=== PATIENT | female | born 1975 | race Caucasian/White ===

== ENCOUNTER 2016-04-24 12:47 | Emergency (ER) | payer MEDICAID ==
[2016-04-24] MEDS ORDERED: predniSONE 20 MG TABLET PO STA (13:01)
[2016-04-24] MEDS ORDERED: predniSONE 20 MG TABLET ONE (13:04)
== END 2016-04-24 13:08 | disposition home or self-care (01) ==
DX: J06.9 Acute upper respiratory infection, unspecified (principal); B97.89 Other viral agents as the cause of diseases classified elsewhere; R06.2 Wheezing
CPT/HCPCS: 99283; J7512

== ENCOUNTER 2016-04-26 14:58 | Emergency (ER) | payer MEDICAID | END 2016-04-26 18:59 | disposition home or self-care (01) | DX: J06.9 Acute upper respiratory infection, unspecified (principal); B97.89 Other viral agents as the cause of diseases classified elsewhere; J44.9 Chronic obstructive pulmonary disease, unspecified; J45.909 Unspecified asthma, uncomplicated ==

== ENCOUNTER 2017-07-20 09:27 | Emergency (ER) | payer MEDICAID ==
[2017-07-20 09:33] VITALS: BP 109/64
[2017-07-20 09:50] LABS: BILIRUBIN,URINE NEGATIVE (NEGATIVE); GLUCOSE, URINE (UA) NEGATIVE (NEGATIVE); KETONES,URINE (UA) NEGATIVE (NEGATIVE); LEUKOCYTE ESTERASE, URINE MODERATE (NEGATIVE); NITRITE,URINE NEGATIVE (NEGATIVE); OCCULT BLOOD,URINE LARGE (NEGATIVE); PROTEIN,URINE 30 mg/dL (NEGATIVE); UROBILINOGEN,URINE 0.2 (NORMAL) E.U./dL (NORMAL)
[2017-07-20 09:51] LABS: CLARITY,URINE CLEAR (CLEAR)
[2017-07-20 09:52] LABS: HCG UR QUAL NEGATIVE
[2017-07-20 10:00] LABS: BACTERIA,URINE Moderate /HPF (None Seen); RBC,URINE TNTC /HPF (0-5); SQUAMOUS EPITHELIAL CELL,UR MOD Squamous (<= Few)
[2017-07-20] MEDS ORDERED: cefTRIAXone 1 GM VIAL IM STA (10:19)
[2017-07-20] MEDS ORDERED: LIDOCAINE 1% 2 ML VIAL SUBQ ONE (10:19)
--- NOTE | 2017-07-20 10:21 | ED Physician Documentation ---
PD HPI FEMALE - Stated complaint Stated Complaint: FM - Chief complaint Chief Complaint: UTI - History obtained from History obtained from: Patient, Family - History of Present Illness Timing - onset: Enter time (0500), Today Timing - duration: Hours Timing - details: Abrupt onset, Still present Associated symptoms: Dysuria, Urinary frequency, Other (nausea). No: Fever, Back pain, Pelvic pain Similar symptoms before: Diagnosis (UTI) Recently seen: Not recently seen - Additional information Additional information: 41-year-old female who has had urinary tract infections previously is began to develop some symptoms of urinary urgency and frequency at about 5:00 this morning. She is a bit uncomfortable with this and has a bit of nausea. She denies any back pain. Denies any fever. Review of Systems Constitutional: denies: Fever Eyes: denies: Decreased vision Ears: denies: Ear pain Nose: denies: Congestion Throat: denies: Sore throat Cardiac: denies: Chest pain / pressure Respiratory: denies: Cough GI: reports: Nausea. denies: Abdominal Pain, Vomiting, Constipation, Diarrhea : reports: Dysuria, Frequency Skin: denies: Rash Musculoskeletal: denies: Neck pain, Back pain, Extremity pain Neurologic: denies: Generalized weakness, Focal weakness PD PAST MEDICAL HISTORY - Past Medical History Past Medical History: Yes Respiratory: Asthma Psych: Anxiety Musculoskeletal: Chronic back pain - Past Surgical History Past Surgical History: Yes - Present Medications Home Medications: Ambulatory Orders Medication Instructions Recorded Confirmed Citalopram [CeleXA] 20 mg PO DAILY 10/19/15 Albuterol Sulfate [Proair Hfa 04/24/16 Inhaler] predniSONE [Prednisone] 40 mg PO DAILY 5 Days tablet 04/24/16 Albuterol 04/26/16 Albuterol Sulf [Ventolin Hfa 04/26/16 Inhaler] Albuterol Sulfate [Proair Hfa 04/26/16 04/26/16 Inhaler] Hydrocodone/Acetaminophen 1 - 2 each PO Q6H PRN #10 tablet 04/26/16 [Hydrocodon-Acetaminophen 5-325] Azithromycin [Zithromax] 250 mg PO DAILY #6 tablet 01/01/17 Benzonatate [Tessalon] 100 - 200 mg PO TID PRN #20 capsule 01/01/17 predniSONE [Deltasone] 10 mg PO DAILY #26 tablet 01/01/17 Ondansetron Odt [Zofran] 4 mg TL Q6H PRN #10 tablet 07/20/17 Phenazopyridine [Pyridium] 200 mg PO TID #6 tablet 07/20/17 Sulfamethoxazole/Trimethoprim 1 each PO BID #10 tablet 07/20/17 [Sulfamethoxazole-Tmp Ds Tablet] - Allergies Allergies/Adverse Reactions: Allergies Allergy/AdvReac Type Severity Reaction Status Date / Time prochlorperazine AdvReac Unknown Verified 04/26/16 17:48 [From Compazine] prochlorperazine edisylate * AdvReac Unknown Verified 04/26/16 17:48 [From Compazine] prochlorperazine maleate * AdvReac Unknown Verified 04/26/16 17:48 [From Compazine] - Social History Does the pt smoke?: No Smoking Status: Never smoker Does the pt drink ETOH?: No Does the pt have substance abuse?: No - Immunizations Immunizations are current?: Yes PD ED PE NORMAL - Vitals Vital signs reviewed: Yes (normal ) - General General: Alert and oriented X 3, Well developed/nourished, Other (appears uncomfortable) - HEENT HEENT: Atraumatic, PERRL, EOMI - Neck Neck: Supple, no meningeal sign - Cardiac Cardiac: RRR, No murmur - Respiratory Respiratory: No respiratory distress, Clear bilaterally - Abdomen Abdomen: Soft, Non tender - Back Back: No spinal TTP, Other (There is left CVA tenderness to palpation. ) - Derm Derm: Normal color, Warm and dry, No rash - Extremities Extremities: No deformity, No edema - Neuro Neuro: Alert and oriented X 3, No motor deficit, No sensory deficit, Normal speech Eye Opening: Spontaneous Motor: Obeys Commands Verbal: Oriented GCS Score: 15 - Psych Psych: Normal mood, Normal affect Results - Vitals Vitals: Vital Signs - 24 hr 07/20/17 09:31 Temperature 36.1 C L Heart Rate 80 Respiratory 16 Rate Blood Pressure 109/64 O2 Saturation 100 Oxygen O2 Source Room air - Labs Labs: Laboratory Tests 07/20/17 07/20/17 09:45 09:45 Urine Color YELLOW Urine Clarity CLEAR Urine pH 7.0 Ur Specific [place] 1.020 1.020 Urine Protein 30 H Urine Glucose (UA) NEGATIVE Urine Ketones NEGATIVE Urine Occult Blood LARGE H Urine Nitrite NEGATIVE Urine Bilirubin NEGATIVE Urine Urobilinogen 0.2 (NORMAL) Ur Leukocyte Esterase MODERATE H Urine RBC TNTC H Urine WBC 6-10 H Ur Squamous Epith Cells MOD Squamous H Urine Bacteria Moderate H Ur Microscopic Review INDICATED Urine Culture Comments NOT INDICATED Urine HCG, Qual NEGATIVE PD MEDICAL DECISION MAKING - ED course Complexity details: reviewed results, re-evaluated patient, considered differential, d/w patient ED course: 41-year-old female with typical urinary tract symptoms for her and has developed urinary tract infection. She does have white blood cells in the urine on microscopic examination and on on physical examination she has left flank tenderness. She was unaware of this until I struck her back. She also has some nausea. Both of these findings are concerning for early pyelonephritis. For this reason she is administered Rocephin IM and we will start her on some . Departure - Departure Disposition: 01 Home, Self Care Clinical Impression: Pyelonephritis Instructions: ED Kidney Infec Female Follow-Up: Tony Horner MD [Primary Care Provider] - Prescriptions: Ondansetron Odt [Zofran] 4 mg TL Q6H PRN #10 tablet PRN Reason: Nausea / Vomiting Phenazopyridine [Pyridium] 200 mg PO TID #6 tablet Sulfamethoxazole/Trimethoprim [Sulfamethoxazole-Tmp Ds Tablet] 1 each PO BID # 10 tablet
[2017-07-20] MEDS ORDERED: PHENAZOPYRIDINE 100 MG TABLET PO STA (10:35)
[2017-07-20] MEDS ORDERED: ONDANSETRON ODT 4 MG TABLET TL STA (10:36)
== END 2017-07-20 10:59 | disposition home or self-care (01) ==
LOC: ED 09:27
DX: N12 Tubulo-interstitial nephritis, not specified as acute or chronic (principal); R11.0 Nausea
CPT/HCPCS: 81001; 81025; 96372; 99283; A9270; Q0162; 81003; 87086

== ENCOUNTER 2018-01-20 08:00 | Outpatient (CLI) | payer MEDICAID ==
[2018-01-20 12:35] LABS: BUN - BLOOD UREA NITROGEN 15 mg/dL (6-20); CALCIUM 8.9 mg/dL (8.5-10.3); CARBON DIOXIDE - CO2 25 mmol/L (21-32); CHLORIDE 102 mmol/L (101-111); CREATININE 0.6 mg/dL (0.4-1.0); GFR - MDRD 109 (>89); GLUCOSE 91 mg/dL (70-100); SODIUM 137 mmol/L (135-145)
[2018-01-20 12:44] LABS: BASOPHILS % (AUTO) 0.6 %; EOSINOPHILS # (AUTO) 0.4 10^3/uL (0.0-0.7); EOSINOPHILS % (AUTO) 4.8 %; HGB - HEMOGLOBIN 12.4 g/dL (12.0-16.0); LYMPHOCYTES # (AUTO) 1.4 10^3/uL (1.5-3.5); LYMPHOCYTES % (AUTO) 18.1 %; MEAN CORPUSCULAR HEMOGLOBIN 26.9 pg (27.0-31.0); MEAN CORPUSCULAR HGB CONC 33.3 g/dL (32.0-36.0); MEAN CORPUSCULAR VOLUME 80.7 fL (81.0-99.0); MEAN PLATELET VOLUME 9.3 fL (7.9-10.8); MONOCYTES # (AUTO) 0.6 10^3/uL (0.0-1.0); MONOCYTES % (AUTO) 8.2 %; NEUTROPHILS # (AUTO) 5.4 10^3/uL (1.5-6.6); NEUTROPHILS % (AUTO) 68.3 %; PLT - PLATELET COUNT 204 10^3/uL (130-450); RED BLOOD COUNT 4.63 10^6/uL (4.20-5.40); RED CELL DISTRIBUTION WIDTH 13.9 % (12.0-15.0); WHITE BLOOD COUNT 7.9 x10^3/uL (4.8-10.8)
== END 2018-01-20 08:01 | disposition home or self-care (01) ==
LOC: LAB.N 08:00
PROVIDERS: ATTEND Physician Assistant Medical
DX: Z00.00 Encounter for general adult medical examination without abnormal findings (principal)
CPT/HCPCS: 36415; 80048; 84443; 85025

== ENCOUNTER 2018-02-12 10:23 | Outpatient (CLI) | payer MEDICAID ==
--- NOTE | 2018-02-13 09:06 | Mammography Report ---
Reason: SCREENING MAMMO Procedure Date: 02/12/2018 Accession Number: [id number] / [id number] Procedure: MGN - Screening Mammo Dig Bilat CPT Code: FULL RESULT: EXAM: Screening Mammo Dig Bilat DATE: 02/12/2018 10:44 AM CLINICAL HISTORY: Screening encounter. No known risk factors. TECHNIQUE: Bilateral CC, laterally exaggerated CC, MLO views were obtained. COMPARISON: The patient reports having had a mammogram in 2004. This study serves as a new baseline mammogram. FINDINGS: The breasts demonstrate heterogeneously dense fibroglandular parenchyma bilaterally. No suspicious masses, clustered microcalcifications, or regions of architectural distortion are identified. IMPRESSION: Negative examination RECOMMENDATION: Routine annual screening unless otherwise clinically indicated. BIRADS CATEGORY 1: Negative STANDARD QUALIFYING STATEMENTS: 1. This examination was reviewed with the aid of Computer-Aided Detection (CAD). 2. A negative or benign imaging report should not preclude biopsy if clinically suspicious findings are present. 3. Dense breasts may obscure an underlying neoplasm. 4. This examination was reviewed without the aid of 3D breast imaging (tomosynthesis).
== END 2018-02-12 10:24 | disposition home or self-care (01) ==
LOC: DI.N 10:23
PROVIDERS: ATTEND Physician Assistant Medical
DX: Z12.31 Encounter for screening mammogram for malignant neoplasm of breast (principal)
CPT/HCPCS: 77067

== ENCOUNTER 2018-07-06 12:05 | Outpatient (CLI) | payer MEDICAID ==
[2018-07-06 19:47] LABS: BILIRUBIN,URINE NEGATIVE (NEGATIVE); GLUCOSE, URINE (UA) NEGATIVE (NEGATIVE); KETONES,URINE (UA) NEGATIVE (NEGATIVE); LEUKOCYTE ESTERASE, URINE NEGATIVE (NEGATIVE); NITRITE,URINE NEGATIVE (NEGATIVE); OCCULT BLOOD,URINE MODERATE (NEGATIVE); PROTEIN,URINE NEGATIVE (NEGATIVE); UROBILINOGEN,URINE 0.2 (NORMAL) E.U./dL (NORMAL)
[2018-07-06 19:49] LABS: CLARITY,URINE CLEAR (CLEAR)
[2018-07-06 19:59] LABS: BACTERIA,URINE None Seen /HPF (None Seen); SQUAMOUS EPITHELIAL CELL,UR RARE Squamous (<= Few)
== END 2018-07-06 23:59 | disposition home or self-care (01) ==
LOC: LAB.R 12:05
PROVIDERS: ATTEND Physician Assistant Medical
DX: N39.0 Urinary tract infection, site not specified (principal)
CPT/HCPCS: 81001; 81003; 87086

== ENCOUNTER 2018-07-19 09:44 | Emergency (ER) | payer MEDICAID ==
[2018-07-19 10:45] LABS: BILIRUBIN,URINE NEGATIVE (NEGATIVE); GLUCOSE, URINE (UA) NEGATIVE (NEGATIVE); KETONES,URINE (UA) NEGATIVE (NEGATIVE); LEUKOCYTE ESTERASE, URINE NEGATIVE (NEGATIVE); NITRITE,URINE NEGATIVE (NEGATIVE); OCCULT BLOOD,URINE NEGATIVE (NEGATIVE); PROTEIN,URINE NEGATIVE (NEGATIVE); UROBILINOGEN,URINE 0.2 (NORMAL) E.U./dL (NORMAL)
[2018-07-19 10:47] LABS: CLARITY,URINE CLEAR (CLEAR); HCG UR QUAL NEGATIVE
[2018-07-19 11:17] LABS: BASOPHILS % (AUTO) 0.6 %; EOSINOPHILS # (AUTO) 0.3 10^3/uL (0.0-0.7); EOSINOPHILS % (AUTO) 4.1 %; HGB - HEMOGLOBIN 11.6 g/dL (12.0-16.0); LYMPHOCYTES # (AUTO) 1.3 10^3/uL (1.5-3.5); LYMPHOCYTES % (AUTO) 19.7 %; MEAN CORPUSCULAR HEMOGLOBIN 24.8 pg (27.0-31.0); MEAN CORPUSCULAR HGB CONC 31.9 g/dL (32.0-36.0); MEAN CORPUSCULAR VOLUME 77.8 fL (81.0-99.0); MEAN PLATELET VOLUME 8.3 fL (7.9-10.8); MONOCYTES # (AUTO) 0.5 10^3/uL (0.0-1.0); MONOCYTES % (AUTO) 8.5 %; NEUTROPHILS # (AUTO) 4.3 10^3/uL (1.5-6.6); NEUTROPHILS % (AUTO) 67.1 %; PLT - PLATELET COUNT 186 10^3/uL (130-450); RED BLOOD COUNT 4.67 10^6/uL (4.20-5.40); RED CELL DISTRIBUTION WIDTH 15.3 % (12.0-15.0); WHITE BLOOD COUNT 6.4 x10^3/uL (4.8-10.8)
[2018-07-19 11:26] LABS: ALBUMIN 3.6 g/dL (3.2-5.5); ALBUMIN/GLOBULIN RATIO 1.2 (1.0-2.2); BILIRUBIN,TOTAL 0.5 mg/dL (0.2-1.0); CALCIUM 8.6 mg/dL (8.5-10.3); CREATININE 0.7 mg/dL (0.4-1.0); TOTAL PROTEIN 6.7 g/dL (6.7-8.2)
[2018-07-19] MEDS ORDERED: KETOROLAC 30 MG/ML VIAL IVP STA (11:47)
[2018-07-19] MEDS ORDERED: SODIUM CHLORIDE 0.9% 1,000 ML IV ONE (11:47)
--- NOTE | 2018-07-19 11:50 | ED Physician Documentation ---
PD HPI ABD PAIN - Stated complaint Stated Complaint: FEMALE /BACK PAIN - Chief complaint Chief Complaint: General - History obtained from History obtained from: Patient, Family - History of Present Illness Timing - onset: Last night Timing - duration: Hours Timing - details: Abrupt onset, Still present Quality: Sharp, Pain Location: LUQ Radiation: Left flank Improved by: Other (nothing) Worsened by: Other (nothing) Associated symptoms: Nausea, Vomiting, Dysuria Similar symptoms before: Diagnosis (UTI) Recently seen: Clinic - Additional information Additional information: 42-year-old female with a prior history of urinary tract infection has developed symptoms about a month ago she went into see her doctor was put on some antibiotic at that time she had some blood in the urine more than what was indicated for infection she did not seem to get improvement with antibiotic and last night she developed a severe increase in her pain along with nausea and vomiting and this is all in the left flank. Review of Systems Constitutional: denies: Fever Eyes: denies: Decreased vision Ears: denies: Ear pain Nose: denies: Rhinorrhea / runny nose, Congestion Throat: denies: Sore throat Respiratory: denies: Cough GI: reports: Abdominal Pain, Nausea, Vomiting : reports: Dysuria Skin: denies: Rash Musculoskeletal: reports: Back pain. denies: Neck pain Neurologic: denies: Generalized weakness, Focal weakness, Numbness PD PAST MEDICAL HISTORY - Past Medical History Respiratory: Asthma Psych: Anxiety Musculoskeletal: Chronic back pain - Past Surgical History Past Surgical History: Yes - Present Medications Home Medications: Ambulatory Orders Medication Instructions Recorded Confirmed Citalopram [CeleXA] 20 mg PO DAILY 10/19/15 Albuterol Sulfate [Proair Hfa 04/26/16 04/26/16 Inhaler] Hydrocodone/Acetaminophen 1 - 2 each PO Q6H PRN #14 tablet 07/19/18 [Hydrocodon-Acetaminophen 5-325] - Allergies Allergies/Adverse Reactions: Allergies Allergy/AdvReac Type Severity Reaction Status Date / Time prochlorperazine AdvReac Unknown Verified 04/26/16 17:48 [From Compazine] prochlorperazine edisylate * AdvReac Unknown Verified 04/26/16 17:48 [From Compazine] prochlorperazine maleate * AdvReac Unknown Verified 04/26/16 17:48 [From Compazine] - Social History Does the pt smoke?: No Smoking Status: Never smoker Does the pt drink ETOH?: No Does the pt have substance abuse?: No - Immunizations Immunizations are current?: Yes PD ED PE NORMAL - Vitals Vital signs reviewed: Yes (normal ) - General General: Alert and oriented X 3, No acute distress, Well developed/nourished - HEENT HEENT: Atraumatic, PERRL, EOMI - Neck Neck: Supple, no meningeal sign, No bony TTP - Cardiac Cardiac: RRR, No murmur - Respiratory Respiratory: No respiratory distress, Clear bilaterally - Abdomen Abdomen: Soft, Non tender - Back Back: No CVA TTP, No spinal TTP - Derm Derm: Normal color, Warm and dry, No rash - Extremities Extremities: No deformity, No edema - Neuro Neuro: Alert and oriented X 3, tile conduit layer 2-12 intact, No motor deficit, No sensory deficit, Normal speech Eye Opening: Spontaneous Motor: Obeys Commands Verbal: Oriented GCS Score: 15 - Psych Psych: Normal mood, Normal affect Results - Vitals Vitals: Vital Signs - 24 hr 07/19/18 07/19/18 07/19/18 10:11 11:30 14:50 Temperature 36.9 C 37 C 37.1 C Heart Rate 85 78 64 Respiratory 16 21 16 Rate Blood Pressure 98/72 116/60 127/62 O2 Saturation 99 96 99 Oxygen O2 Source Room air - Labs Labs: Laboratory Tests 07/19/18 07/19/18 07/19/18 10:34 11:07 11:07 WBC 6.4 RBC 4.67 Hgb 11.6 L Hct 36.4 L MCV 77.8 L MCH 24.8 L MCHC 31.9 L RDW 15.3 H Plt Count 186 MPV 8.3 Neut # (Auto) 4.3 Lymph # (Auto) 1.3 L Hunt # (Auto) 0.5 Eos # (Auto) 0.3 Baso # (Auto) 0.0 Absolute Nucleated RBC 0.00 Nucleated RBC % 0.1 Sodium 136 Potassium 4.0 Chloride 101 Carbon Dioxide 24 Anion Gap 11.0 BUN 14 Creatinine 0.7 Estimated GFR (MDRD) 91 Glucose 94 Calcium 8.6 Total Bilirubin 0.5 AST 21 ALT 17 Alkaline Phosphatase 51 Total Protein 6.7 Albumin 3.6 Globulin 3.1 Albumin/Globulin Ratio 1.2 Lipase 27 Urine Color LT. YELLOW Urine Clarity CLEAR Urine pH 8.0 H Ur Specific [place] <=1.005 Urine Protein NEGATIVE Urine Glucose (UA) NEGATIVE Urine Ketones NEGATIVE Urine Occult Blood NEGATIVE Urine Nitrite NEGATIVE Urine Bilirubin NEGATIVE Urine Urobilinogen 0.2 (NORMAL) Ur Leukocyte Esterase NEGATIVE Ur Microscopic Review NOT INDICATED Urine Culture Comments NOT INDICATED Urine HCG, Qual NEGATIVE - Rads (name of study) CT abd/pel without Radiology: Prelim report reviewed (Impression: 1. Nonobstructing right nephrolithiasis. 2 no evidence of urinary tract obstruction. 3 Relatively prominent and hypodense left ovary. This could represent incidental cystic change but in the setting of left-sided pain the pelvic ultrasound could be considered. 4 Large amount of stool throughout the colon.), EMP read indepedently, See rad report pelvic u/s Radiology: Prelim report reviewed (Impression: 1. Somewhat limited evaluation as the patient declined transvaginal evaluation. 2. Multicystic appearance of the left ovary with the largest cyst measuring up to 2.7 cm. 3. Doppler flow to bilateral ovaries is seen without sonographic evidence for torsion.), EMP read indepedently, See rad report Procedures - Bedside sono Bedside sono by EMP: With use of bedside ultrasound the left kidney is imaged it is sonographically nontender there is obvious hydronephrosis. There is no perinephric fluid PD MEDICAL DECISION MAKING - ED course Complexity details: reviewed old records, reviewed results, re-evaluated patient, considered differential, d/w patient, d/w family ED course: 42 y/o female with left flank pain has no infection and no stone on CT. She does have some hydro on bedside ultrasound and a polycyctic ovary on the left. She has improvement with some pain medication. Departure - Departure Disposition: Home, Self Care Clinical Impression: Ovarian cyst Qualifiers: Laterality: left Qualified Code(s): N83.202 - Unspecified ovarian cyst, left side Condition: Stable Instructions: ED Cyst Ovarian Follow-Up: Craig Pinon PA-C [Primary Care Provider] - Prescriptions: Hydrocodone/Acetaminophen [Hydrocodon-Acetaminophen 5-325] 1 - 2 each PO Q6H PRN #14 tablet PRN Reason: pain Forms: Activity restrictions
--- NOTE | 2018-07-19 12:35 | CT Report ---
Reason: left flank pain Procedure Date: 07/19/2018 Accession Number: [id number] / [id number] Procedure: CT - Abdomen/Pelvis WO CPT Code: FULL RESULT: EXAM: CT ABDOMEN AND PELVIS (CT KUB) EXAM DATE: 07/19/2018 12:04 PM. CLINICAL HISTORY: Left flank pain. COMPARISONS: None. TECHNIQUE: Routine axial helical CT imaging was performed through the abdomen and pelvis without IV contrast. Reconstructions: Coronal and sagittal. In accordance with CT protocol optimization, one or more of the following dose reduction techniques were utilized for this exam: automated exposure control, adjustment of mA and/or KV based on patient size, or use of iterative reconstructive technique. FINDINGS: Lung Bases: Unremarkable. Right Kidney/Ureter: 2 nonobstructing lower pole calculi measuring up to 3 mm. No hydronephrosis, hydroureter or ureteral calculi demonstrated. No perinephric stranding. Left Kidney/Ureter: No stones, hydronephrosis, or hydroureter. No perinephric fat stranding. No definite ureteral calculi. A left pelvic calcification is most consistent with a phlebolith. Other Solid Organs: Noncontrast images of the solid organs are grossly unremarkable. Gallbladder/Bile Ducts: Unremarkable. Peritoneal Cavity: No free fluid, free air or meena adenopathy. Bowel is grossly unremarkable. The cecum is low-lying and the appendix is not definitely visualized but there are no findings suspicious for appendicitis. Large amount of stool within the colon. Pelvic Organs: No bladder stones or wall thickening. Pattern consistent with relative prominence of the left ovary measuring up to 3.6 cm, and relative low density suggesting cystic change. This could represent a dominant follicle/follicles but in the setting of left pelvic pain further evaluation by pelvic ultrasound could be considered. Otherwise, noncontrast images of the visualized pelvic organs are unremarkable. Vasculature: Unremarkable. Other: None. IMPRESSION: 1. Nonobstructing right nephrolithiasis. 2. No evidence of urinary tract obstruction. 3. Relatively prominent and hypodense left ovary. This could represent incidental cystic change but in the setting of left sided pain, pelvic ultrasound could be considered. 4. Large amount of stool throughout the colon. RADIA
[2018-07-19] MEDS ORDERED: ONDANSETRON 4 MG/2 ML VIAL IVP STA (14:20)
[2018-07-19] MEDS ORDERED: HYDROmorphone 1 MG/ML CARPUJECT IVP STA (14:20)
--- NOTE | 2018-07-19 15:35 | Ultrasound Report ---
Reason: LEFT FLANK PAIN Procedure Date: 07/19/2018 Accession Number: [id number] / [id number] Procedure: US - Pelvic w/Doppler Complete CPT Code: FULL RESULT: EXAM: PELVIC ULTRASOUND WITH DOPPLERS CLINICAL HISTORY: LEFT FLANK PAIN. COMPARISON: ABDOMEN/PELVIS W/O 07/19/2018 11:58 AM TECHNIQUE: Realtime transabdominal imaging performed to identify the uterus and adnexa and as an overview of other pelvic structures, with static image documentation. Color flow imaging and Doppler spectral analysis was performed to evaluate blood flow to the ovaries given pelvic pain and clinical concern for ovarian torsion. FINDINGS: Uterus: 9.7 x 4.9 x 6.3 cm, volume 157 cc. Anteverted position. Normal overall size and echotexture. Masses: None. Endometrium: 15 mm. Endometrium at the upper limit of normal for thickness. No focal lesions are seen. Cervix: Unremarkable. Right Ovary: 3.2 x 1.8 x 2.8 cm, volume 8.2 cc. Normal echotexture. Arterial and venous blood flow are present. PSV 24 cm/sec. RI 0.5. Adnexa are unremarkable. Left Ovary: 3.8 x 3.5 x 4 cm, volume 27 cc. Multiple cysts are evident, the largest measuring up to 2.7 cm. Arterial and venous blood flow are present. PSV 20 cm/sec. RI 0.6. Adnexa are unremarkable. Free Fluid: None. Other: None. IMPRESSION: 1. Somewhat limited evaluation as the patient declined transvaginal evaluation. 2. Multicystic appearance to the left ovary with the largest cyst measuring up to 2.7 cm. 3. Doppler flow to bilateral ovaries is seen without sonographic evidence for torsion. RADIA
[2018-07-19 16:37] VITALS: BP 108/65
== END 2018-07-19 16:37 | disposition home or self-care (01) ==
LOC: ED 09:44
DX: N83.202 Unspecified ovarian cyst, left side (principal); N13.30 Unspecified hydronephrosis
CPT/HCPCS: 36415; 74176; 76856; 80053; 81003; 81025; 83690; 85025; 93975; 96361; 96374; 96375; 99283; 99284; J1170; 81001; 87086

== ENCOUNTER 2018-07-25 19:14 | Emergency (ER) | payer MEDICAID ==
[2018-07-25] MEDS ORDERED: PROMETHAZINE INJ 25 MG in SODIUM CHLORIDE 0.9% 50 ML IV STA (19:52)
[2018-07-25] MEDS ORDERED: OPIUM/BELLADONNA 60/16.2MG SUPPOSITORY PR STA (19:52)
[2018-07-25] MEDS ORDERED: KETOROLAC 30 MG/ML VIAL IM STA (19:52)
[2018-07-25] MEDS ORDERED: PROMETHAZINE 25 MG/1 ML VIAL IM STA (19:55)
--- NOTE | 2018-07-25 20:00 | ED Physician Documentation ---
History of Present Illness - Stated complaint Stated Complaint: FEMALE /NAUSEA/YIN - Chief complaint Chief Complaint: General - History obtained from History obtained from: Patient, Family - History of Present Illness Timing: How many days ago (several) Pain level max: 8 Pain level now: 8 - Additonal information Additional information: 42-year-old female presents to the emergency department with lower abdominal pain, dysuria and urinary frequency. Has been treated for UTI recently. She also has a headache, nausea, vomiting. Has been seen at 3 different ERs in [address] and ultrasounds other than an ovarian cyst. States vomiting today and Zofran not helping. Nothing makes it better. Worse with eating and drinking Review of Systems Ten Systems: 10 systems reviewed and negative Constitutional: denies: Fever, Chills Nose: denies: Rhinorrhea / runny nose, Congestion Throat: denies: Sore throat Cardiac: denies: Chest pain / pressure Respiratory: denies: Cough Skin: denies: Rash Musculoskeletal: denies: Neck pain, Back pain Neurologic: reports: Headache. denies: Focal weakness, Numbness, Confused PD PAST MEDICAL HISTORY - Past Medical History Respiratory: Asthma Psych: Anxiety Musculoskeletal: Chronic back pain - Past Surgical History Past Surgical History: Yes - Present Medications Home Medications: Ambulatory Orders Medication Instructions Recorded Confirmed Citalopram [CeleXA] 20 mg PO DAILY 10/19/15 Albuterol Sulfate [Proair Hfa 04/26/16 04/26/16 Inhaler] Hydrocodone/Acetaminophen 1 - 2 each PO Q6H PRN #14 tablet 07/19/18 [Hydrocodon-Acetaminophen 5-325] Opium/Belladonna Alkaloids 1 each RC Q6H PRN #20 supp.rect 07/25/18 [Belladonna-Opium 16.2-60 Supp] Promethazine Supp [Phenergan Supp] 25 mg MO Q6H PRN #10 supp 07/25/18 Promethazine [Phenergan] 25 mg PO Q6H PRN #20 tab 07/25/18 - Allergies Allergies/Adverse Reactions: Allergies Allergy/AdvReac Type Severity Reaction Status Date / Time prochlorperazine AdvReac Unknown Verified 07/25/18 19:21 [From Compazine] prochlorperazine edisylate * AdvReac Unknown Verified 07/25/18 19:21 [From Compazine] prochlorperazine maleate * AdvReac Unknown Verified 07/25/18 19:21 [From Compazine] - Social History Does the pt smoke?: No Smoking Status: Never smoker Does the pt drink ETOH?: No Does the pt have substance abuse?: No - Immunizations Immunizations are current?: Yes PD ED PE NORMAL - Vitals Vital signs reviewed: Yes - General General: Alert and oriented X 3, No acute distress - HEENT HEENT: Atraumatic, PERRL, Moist mucous membranes - Neck Neck: Supple, no meningeal sign - Cardiac Cardiac: RRR - Respiratory Respiratory: No respiratory distress, Clear bilaterally - Abdomen Abdomen: Soft, Non tender, Non distended - Back Back: No CVA TTP, No spinal TTP - Derm Derm: Warm and dry - Extremities Extremities: No edema, No calf tenderness / cord - Neuro Neuro: Alert and oriented X 3 - Psych Psych: Normal mood, Normal affect Results - Vitals Vitals: Vital Signs - 24 hr 07/25/18 07/25/18 19:16 21:04 Temperature 37.1 C Heart Rate 63 58 L Respiratory 14 15 Rate Blood Pressure 114/58 L 105/58 L O2 Saturation 100 97 Oxygen O2 Source Room air - Labs Labs: Laboratory Tests 07/25/18 20:53 Urine Color ORANGE Urine Clarity HAZY Urine pH 6.5 Ur Specific [place] <=1.005 Urine Protein TRACE Urine Glucose (UA) 100 H Urine Ketones NEGATIVE Urine Occult Blood NEGATIVE Urine Nitrite POSITIVE H Urine Bilirubin NEGATIVE Urine Urobilinogen 2 H Ur Leukocyte Esterase NEGATIVE Urine RBC 0-5 Urine WBC 0-3 Ur Squamous Epith Cells MANY Squamous H Urine Bacteria Few Ur Microscopic Review INDICATED Urine Culture Comments NOT INDICATED Urine HCG, Qual NEGATIVE PD MEDICAL DECISION MAKING - ED course Complexity details: reviewed results, re-evaluated patient, considered differential, d/w patient ED course: Patient has had several work-ups over the past 3 days for this. She feels significantly better after B&O suppositories as well as Phenergan. Tolerating p.o. without difficulty. She has had multiple blood draws, CT scans, ultrasounds over the past 3 days. Will not repeat this today. We will treat symptomatically instead. Patient and family counseled regarding signs and symptoms for which I believe and urgent re-evaluation would be necessary. Patient with good understanding of and agreement to plan and is comfortable going home at this time This document was made in part using voice recognition software. While efforts are made to proofread this document, sound alike and grammatical errors may occur. Departure - Departure Disposition: 01 Home, Self Care Clinical Impression: Bladder spasms Vomiting Qualifiers: Vomiting type: unspecified Vomiting Intractability: non-intractable Nausea presence: with nausea Qualified Code(s): R11.2 - Nausea with vomiting, unspecified Headache Qualifiers: Headache type: unspecified Headache chronicity pattern: unspecified pattern Intractability: not intractable Qualified Code(s): R51 - Headache Condition: Good Instructions: Cystitis Interstitial, ED Headache Migraine Follow-Up: Craig Pinon PA-C [Primary Care Provider] - Within 1 week Prescriptions: Opium/Belladonna Alkaloids [Belladonna-Opium 16.2-60 Supp] 1 each RC Q6H PRN #20 supp.rect PRN Reason: Bladder Spasms Promethazine [Phenergan] 25 mg PO Q6H PRN #20 tab PRN Reason: Nausea / Vomiting Promethazine Supp [Phenergan Supp] 25 mg MO Q6H PRN #10 supp PRN Reason: Nausea / Vomiting Comments: The cause of your symptoms is unclear. You may have interstitial cystitis? You should follow-up with your doctor for further care. Do not drive or operate heavy machinery while taking the B&O suppositories or Phenergan. Drink plenty of fluids and rest. Do not drink alcohol or drive while on narcotic pain medicine. Note that many narcotic pain relievers also contain tylenol/acetaminophen. Please ensure that your total dose of acetaminophen from all sources does not exceed 3 grams (3000mg) per day. You may constipated on this medication, take a stool softener such as "Colace" twice a day while you are on it. Also recommend a [id number] laxative such as senna or MiraLAX any day that you do not have a bowel movement. If you received narcotic pain medication in the emergency department, do not drive or operate machinery for the next 24 hours. Discharge Date/Time: 07/25/18 21:33
[2018-07-25 20:57] LABS: BILIRUBIN,URINE NEGATIVE (NEGATIVE); GLUCOSE, URINE (UA) 100 mg/dL (NEGATIVE); KETONES,URINE (UA) NEGATIVE (NEGATIVE); LEUKOCYTE ESTERASE, URINE NEGATIVE (NEGATIVE); NITRITE,URINE POSITIVE (NEGATIVE); OCCULT BLOOD,URINE NEGATIVE (NEGATIVE); PH,URINE 6.5 PH (5.0-7.5); PROTEIN,URINE TRACE mg/dL (NEGATIVE); UROBILINOGEN,URINE 2 E.U./dL (NORMAL)
[2018-07-25 21:07] VITALS: BP 105/58
[2018-07-25 21:10] LABS: CLARITY,URINE HAZY (CLEAR); HCG UR QUAL NEGATIVE
[2018-07-25 21:11] LABS: BACTERIA,URINE Few /HPF (None Seen); RBC,URINE 0-5 /HPF (0-5); SQUAMOUS EPITHELIAL CELL,UR MANY Squamous (<= Few)
== END 2018-07-25 21:33 | disposition home or self-care (01) ==
LOC: ED 19:14
DX: N32.89 Other specified disorders of bladder (principal); R11.2 Nausea with vomiting, unspecified; R51 Headache
CPT/HCPCS: 81001; 81025; 96372; 99283; A9270; 81003; 87086

== ENCOUNTER 2018-08-02 10:46 | Emergency (ER) | payer MEDICAID ==
[2018-08-02 10:55] VITALS: BP 130/110
--- NOTE | 2018-08-02 11:17 | ED Physician Documentation ---
History of Present Illness - Stated complaint Stated Complaint: ABD PAIN - Chief complaint Chief Complaint: Abd Pain - History obtained from History obtained from: Patient, Family - History of Present Illness Timing: Chronic Pain level max: 10 Pain level now: 8 - Additonal information Additional information: 42-year-old female presents to the emergency department with abdominal and pelvic pain. Is been worked up several times for this in the past. She has an appointment on but will be out of her pain medication before then. Requesting a short refill. No new symptoms. Nothing makes it better or worse. 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 Psych: Anxiety Musculoskeletal: Chronic back pain - Past Surgical History Past Surgical History: Yes - Present Medications Home Medications: Ambulatory Orders Medication Instructions Recorded Confirmed Citalopram [CeleXA] 20 mg PO DAILY 10/19/15 08/02/18 Albuterol Sulfate [Proair Hfa 1 puffs INH PRN PRN 04/26/16 08/02/18 Inhaler] Promethazine Supp [Phenergan Supp] 25 mg MS Q6H PRN #10 supp 07/25/18 08/02/18 Promethazine [Phenergan] 25 mg PO Q6H PRN #20 tab 07/25/18 08/02/18 Oxycodone HCl/Acetaminophen 1 tab PO PRN PRN 08/02/18 08/02/18 [Oxycodone-Acetaminophen 5-325] Oxycodone HCl/Acetaminophen 1 - 2 each PO Q6H PRN #20 tablet 08/02/18 [Percocet 5-325 mg Tablet] - Allergies Allergies/Adverse Reactions: Allergies Allergy/AdvReac Type Severity Reaction Status Date / Time prochlorperazine AdvReac Unknown Verified 08/02/18 10:54 [From Compazine] prochlorperazine edisylate * AdvReac Unknown Verified 08/02/18 10:54 [From Compazine] prochlorperazine maleate * AdvReac Unknown Verified 08/02/18 10:54 [From Compazine] - Social History Does the pt smoke?: No Smoking Status: Never smoker Does the pt drink ETOH?: No Does the pt have substance abuse?: No - Immunizations Immunizations are current?: Yes PD ED PE NORMAL - Vitals Vital signs reviewed: Yes - General General: Alert and oriented X 3, No acute distress, Well developed/nourished - HEENT HEENT: Moist mucous membranes - Neck Neck: Supple, no meningeal sign - Cardiac Cardiac: RRR, Strong equal pulses - Respiratory Respiratory: No respiratory distress, Clear bilaterally - Abdomen Abdomen: Soft, Non tender, Non distended - Derm Derm: Warm and dry - Neuro Neuro: Alert and oriented X 3 - Psych Psych: Normal mood, Normal affect Results - Vitals Vitals: Vital Signs - 24 hr 08/02/18 10:51 Temperature 36.3 C L Heart Rate 82 Respiratory 14 Rate Blood Pressure 130/110 H O2 Saturation 98 Oxygen O2 Source Room air PD MEDICAL DECISION MAKING - ED course Complexity details: reviewed old records, considered differential, d/w patient ED course: Small amount of pain meds will be given. We will follow-up with urology on as scheduled. She is well-appearing, nontoxic. Afebrile. Tolerating p.o. without difficulty. Patient counseled regarding signs and symptoms for which I believe and urgent re-evaluation would be necessary. Patient with good understanding of and agreement to plan and is comfortable going home at this time This document was made in part using voice recognition software. While efforts are made to proofread this document, sound alike and grammatical errors may occur. Departure - Departure Disposition: 01 Home, Self Care Clinical Impression: Abdominal pain Qualifiers: Abdominal location: unspecified location Qualified Code(s): R10.9 - Unspecified abdominal pain Condition: Good Instructions: ED Abdominal Pain Unkn Cause Follow-Up: Craig Pinon PA-C [Primary Care Provider] - Within 1 week Prescriptions: Oxycodone HCl/Acetaminophen [Percocet 5-325 mg Tablet] 1 - 2 each PO Q6H PRN #20 tablet PRN Reason: pain Comments: Follow-up with urology on as scheduled. Return if you worsen. Discharge Date/Time: 08/02/18 11:21
== END 2018-08-02 11:21 | disposition home or self-care (01) ==
LOC: ED 10:46
DX: R10.2 Pelvic and perineal pain (principal)
CPT/HCPCS: 99283

== ENCOUNTER 2018-08-10 08:50 | Outpatient (CLI) | payer MEDICAID ==
[2018-08-10] MEDS ORDERED: FUROSEMIDE 40 MG/4 ML VIAL IVP ONE (09:35)
--- NOTE | 2018-08-10 15:25 | Nuclear Medicine Report ---
Reason: LAFT FLANK PAIN,BLADDER PAIN Procedure Date: 08/10/2018 Accession Number: [id number] / [id number] Procedure: NM - Renal Flow + Function w/Rx CPT Code: FULL RESULT: EXAM: RENOGRAM WITH LASIX EXAM DATE: 08/10/2018 02:18 PM. CLINICAL HISTORY: LEFT FLANK Pain, bladder PAIN. COMPARISON: ABDOMEN/PELVIS W/O 07/19/2018 11:58 AM. TECHNIQUE: Adequate hydration status was ensured. Patient received the intravenous administration of 5.3 mCi Tc-99m MAG3. Immediate renal blood flow images were acquired for 2 minutes. Approximately 10 minutes into the study, the patient received an intravenous administration of 40 mg Lasix. Renal dynamic images were acquired from the posterior projection for approximately 40 minutes. Postvoid images were acquired as well. FINDINGS: Renal Vascular Flow: There is prompt, symmetric flow to both kidneys. Renal Parenchymal Function: There is normal function bilaterally. Drainage: Right renal pelvis appears dilated. There is normal drainage bilaterally with drainage half-time for both kidneys less than 10 minutes. Postvoid Images: There is some retained activity in the urinary bladder. Differential Function: Left Kidney = 51.2% Right Kidney = 48.8% IMPRESSION: Function and drainage of both kidneys is within normal limits. RADIA
== END 2018-08-10 08:51 | disposition home or self-care (01) ==
LOC: DI 08:50
PROVIDERS: ATTEND Urology
DX: R10.9 Unspecified abdominal pain (principal); R39.89 Other symptoms and signs involving the genitourinary system
CPT/HCPCS: 78708

== ENCOUNTER 2019-10-31 13:48 | Emergency (ER) | payer MEDICAID ==
--- NOTE | 2019-10-31 14:20 | ED Physician Documentation ---
PD HPI UPPER EXT INJURY - Stated complaint Stated Complaint: L SHOULDER PX - Chief complaint Chief Complaint: Ext Problem - History obtained from History obtained from: Patient - History of Present Illness Location: Left Type of injury: Other (overuse) - Additonal information Additional information: About 5 mos ago, while painting her house. developed L shoulder pain. Bothering her ever since and generally getting worse since. Worse when drying her hair. 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 - Present Medications Home Medications: Ambulatory Orders Medication Instructions Recorded Confirmed Citalopram [CeleXA] 20 mg PO DAILY 10/19/15 08/02/18 Albuterol Sulfate [Proair Hfa 1 puffs INH PRN PRN 04/26/16 08/02/18 Inhaler] Hydrocodone/Acetaminophen 1 - 2 tab PO Q6H PRN #15 tablet 10/31/19 [Hydrocodone-Acetamin 5-325 mg] Meloxicam [Mobic] 7.5 mg PO BID PRN #20 tablet 10/31/19 buPROPion [Wellbutrin Xl] 150 mg PO DAILY 10/31/19 10/31/19 - Allergies Allergies/Adverse Reactions: Allergies Allergy/AdvReac Type Severity Reaction Status Date / Time prochlorperazine AdvReac Unknown Verified 10/31/19 13:58 [From Compazine] prochlorperazine edisylate * AdvReac Unknown Verified 10/31/19 13:58 [From Compazine] prochlorperazine maleate * AdvReac Unknown Verified 10/31/19 13:58 [From Compazine] - Social History Does the pt smoke?: No Smoking Status: Never smoker Does the pt drink ETOH?: No Does the pt have substance abuse?: No - Immunizations Immunizations are current?: Yes Immunizations: TDAP current <10years - POLST Patient has POLST: No PD ED PE NORMAL - Vitals Vital signs reviewed: Yes - General General: Alert and oriented X 3, No acute distress - HEENT HEENT: PERRL, EOMI - Neck Neck: Supple, no meningeal sign, No bony TTP - Extremities Extremities: Other (V mild TTP lateral shoulder. Pos supraspinatus testing and ++ pain with int rotation.) - Neuro Neuro: Alert and oriented X 3, Normal speech Results - Vitals Vitals: Vital Signs - 24 hr 10/31/19 13:55 Temperature 36.7 C Heart Rate 63 Respiratory 18 Rate Blood Pressure 107/67 O2 Saturation 99 Oxygen O2 Source Room air - Rads (name of study) L shoulder XR Radiology: EMP read contemporaneously (NAD, no frx) Departure - Departure Disposition: 01 Home, Self Care Clinical Impression: Rotator cuff tendinitis Qualifiers: Laterality: left Qualified Code(s): M75.82 - Other shoulder lesions, left shoulder Condition: Good Record reviewed to determine appropriate education?: Yes Instructions: Exercises Frozen Shoulder, ED Tendinitis Rotator Cuff Follow-Up: [facility] [Provider Group] - Within 1 week Prescriptions: Hydrocodone/Acetaminophen [Hydrocodone-Acetamin 5-325 mg] 1 - 2 tab PO Q6H PRN #15 tablet PRN Reason: Pain Meloxicam [Mobic] 7.5 mg PO BID PRN #20 tablet PRN Reason: Pain Comments: Do the exercises as discussed to prevent decreased range of motion. Call orthopedic office tomorrow to schedule appointment. As discussed exam is consistent with rotator cuff tendinitis. Don't drink/drive while taking hydrocodone.
--- NOTE | 2019-10-31 14:34 | XRAY Report ---
PROCEDURE: Shoulder 3 View LT INDICATIONS: shoulder inj TECHNIQUE: 3 views of the shoulder were acquired. COMPARISON: None. FINDINGS: Bones: No fractures or dislocations. No suspicious bony lesions. Visualized ribs appear intact. Soft tissues: No suspicious soft tissue calcifications. IMPRESSION: No acute fracture. No osseous lesion. If symptoms and/or clinical suspicion for patholog y continue, further assessment with repeat plain films, or advanced imaging (e.g., CT, MRI, or bone s can) is recommended for further assessment. Reviewed by: Louisa Crump MD on 10/31/2019 2:33 PM PDT Approved by: Louisa Crump MD on 10/31/2019 2:33 PM PDT Station ID: [id number]
[2019-10-31 14:47] VITALS: BP 118/71
== END 2019-10-31 14:52 | disposition home or self-care (01) ==
LOC: ED 13:48
DX: M70.812 Other soft tissue disorders related to use, overuse and pressure, left shoulder (principal); Y93.E9 Activity, other interior property and clothing maintenance
CPT/HCPCS: 99283; 99284

== ENCOUNTER 2019-11-06 12:00 | Emergency (ER) | payer MEDICAID ==
[2019-11-06 12:11] VITALS: BP 122/68
[2019-11-06] MEDS ORDERED: HYDROcod/ACETAM 5/325 MG TABLET PO STA (12:39)
--- NOTE | 2019-11-06 12:41 | ED Physician Documentation ---
History of Present Illness - Stated complaint Stated Complaint: L SHOULDER PAIN - Chief complaint Chief Complaint: Ext Problem - History obtained from History obtained from: Patient - History of Present Illness Timing: Today Pain level max: 9 Pain level now: 9 - Additonal information Additional information: 44-year-old female presents the emergency department complaint of left shoulder pain. This is been ongoing for the past several months. Worsening over the past several weeks. Seen here a week ago for same. Has an appointment with orthopedics in 1 week, states she is out of her pain medication. Worse with movement, better with rest. No new injury. No numbness or tingling. 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 : Chronic bladder infection HEENT: None Psych: Depression, Anxiety Musculoskeletal: Chronic back pain Derm: None - Past Surgical History Past Surgical History: Yes /REIMBURSEMENT AUDITOR: Other - Present Medications Home Medications: Ambulatory Orders Medication Instructions Recorded Confirmed Citalopram [CeleXA] 20 mg PO DAILY 10/19/15 08/02/18 Albuterol Sulfate [Proair Hfa 1 puffs INH PRN PRN 04/26/16 08/02/18 Inhaler] Hydrocodone/Acetaminophen 1 - 2 tab PO Q6H PRN #15 tablet 10/31/19 [Hydrocodone-Acetamin 5-325 mg] Meloxicam [Mobic] 7.5 mg PO BID PRN #20 tablet 10/31/19 buPROPion [Wellbutrin Xl] 150 mg PO DAILY 10/31/19 10/31/19 HYDROcod/ACETAM 5/325 [[place] 5/325] 1 - 2 ea PO Q6H PRN #14 tablet 11/06/19 - Allergies Allergies/Adverse Reactions: Allergies Allergy/AdvReac Type Severity Reaction Status Date / Time prochlorperazine AdvReac Unknown Verified 11/06/19 12:10 [From Compazine] prochlorperazine edisylate * AdvReac Unknown Verified 08/29/20 12:10 [From Compazine] prochlorperazine maleate * AdvReac Unknown Verified 11/06/19 12:10 [From Compazine] - Social History Does the pt smoke?: No Smoking Status: Never smoker Does the pt drink ETOH?: No Does the pt have substance abuse?: No - Immunizations Immunizations are current?: Yes Immunizations: TDAP current <10years - POLST Patient has POLST: No PD ED PE NORMAL - Vitals Vital signs reviewed: Yes - General General: Alert and oriented X 3, No acute distress, Well developed/nourished - HEENT HEENT: Moist mucous membranes - Derm Derm: Warm and dry - Extremities Extremities: Other (Pain with abduction of the left glenohumeral joint, pain with external rotation greater than 90 degrees And internal rotation placing her hand and her mid back. Neurovascular intact. No tenderness over the glenohumeral joint itself.) - Neuro Neuro: Alert and oriented X 3 Results - Vitals Vitals: Vital Signs - 24 hr 11/06/19 12:09 Temperature 36.9 C Heart Rate 80 Respiratory 16 Rate Blood Pressure 122/68 O2 Saturation 98 Oxygen O2 Source Room air PD MEDICAL DECISION MAKING - ED course Complexity details: reviewed old records, reviewed results, considered differential, d/w patient ED course: Patient with what appears to be left rotator cuff tendinitis. Given a Lemons brace. Instructed on exercises and stretching. She will follow-up with orthopedics on Friday. Patient counseled regarding signs and symptoms for which I believe and urgent re-evaluation would be necessary. Patient with good understanding of and agreement to plan and is comfortable going home at this time This document was made in part using voice recognition software. While efforts are made to proofread this document, sound alike and grammatical errors may occur. Departure - Departure Disposition: 01 Home, Self Care Clinical Impression: Rotator cuff tendinitis Qualifiers: Laterality: unspecified laterality Qualified Code(s): M75.80 - Other shoulder lesions, unspecified shoulder Condition: Good Instructions: ED Tendinitis Rotator Cuff Follow-Up: [facility] [Provider Group] - Within 1 week Prescriptions: HYDROcod/ACETAM 5/325 [[place] 5/325] 1 - 2 ea PO Q6H PRN #14 tablet PRN Reason: Pain Comments: Return if you worsen. Follow up with orthopedics for further care. Wear the Lemons brace as needed. Continue the stretches and exercises as instructed. Sleeping in a more upright position will also help your discomfort. Do not drink alcohol or drive while on narcotic pain medicine. Note that many narcotic pain relievers also contain tylenol/acetaminophen. Please ensure that your total dose of acetaminophen from all sources does not exceed 3 grams (3000mg) per day. You may constipated on this medication, take a stool softener such as "Colace" twice a day while you are on it. Also recommend a vhbo-bre-ueazhpj laxative such as senna or MiraLAX any day that you do not have a bowel movement. If you received narcotic pain medication in the emergency department, do not drive or operate machinery for the next 24 hours.
== END 2019-11-06 13:08 | disposition home or self-care (01) ==
LOC: ED 12:00
DX: M75.82 Other shoulder lesions, left shoulder (principal)
CPT/HCPCS: 99282; 99284; A9270

== ENCOUNTER 2020-03-04 07:14 | Outpatient (CLI) | payer MEDICAID ==
--- NOTE | 2020-03-06 09:49 | MRI Report ---
PROCEDURE: Shoulder LT W/O INDICATIONS: INCOMPLETE ROTATOR CUFF TEAR, LT SHLDR TECHNIQUE: Noncontrast oblique coronal T2 fast spin echo with fat saturation, oblique sagittal T1 spin echo and T2 fast spin echo with fat saturation, axial T1 spin echo and T2 fast spin echo with fat saturation t hrough the shoulder. COMPARISON: None. FINDINGS: Image quality: Excellent. Rotator cuff: Supraspinatus tendinopathy with low-grade articular and bursal surface fraying. No full-thickness def ect is seen. The infraspinatus and teres minor tendons appear intact. Mild subscapularis tendinopathy and thickening. No atrophy of the rotator cuff muscles. Bones and bursae: No bone marrow contusions or fractures. Mild acromioclavicular joint degeneration. The acromion demonstrates conventional anatomy, without an os acromiale. Mild subacromial/subdeltoid bursal fluid is present. Capsule and soft tissues: Labrum: Mild blunting and degeneration of the posterior labrum without discrete intrasubstance fluid signal intensity. This superior labrum is not well visualized due to signal dropout on the coronal T2 fat suppressed pulse sequence. The long head of the biceps tendon demonstrates normal location and morphology. The rotator interval appears normal, without fibrosis. The coracohumeral ligament is normal in thickness. IMPRESSION: Supraspinatus tendinopathy with low-grade articular and bursal surface fraying. No high-grade or full -thickness rotator cuff tear. Mild subacromial-subdeltoid bursitis Reviewed by: Francisco Madrigal MD on 03/06/2020 9:48 AM PST Approved by: Francisco Madrigal MD on 03/06/2020 9:48 AM PST Station ID: [id number]
== END 2020-03-04 07:15 | disposition home or self-care (01) ==
LOC: DI 07:14
PROVIDERS: ATTEND Physician Assistant
DX: M75.112 Incomplete rotator cuff tear or rupture of left shoulder, not specified as traumatic (principal); M75.52 Bursitis of left shoulder; M75.82 Other shoulder lesions, left shoulder

== ENCOUNTER 2020-03-09 16:35 | Outpatient (CLI) | payer MEDICAID ==
--- NOTE | 2020-03-09 17:36 | XRAY Report ---
PROCEDURE: Cervical Spine 2 View INDICATIONS: NECK PAIN TECHNIQUE: 3 view(s) of the cervical spine were acquired. COMPARISON: None. FINDINGS: Bones: No fractures or dislocations to the C7 level. Mild degenerative change in the lower cervical spine. The visual is portions of the lateral masses of C1 appear intact on the odontoid view. Odonto id view is suboptimal. No suspicious bony lesions. Soft tissues: No prevertebral soft tissue swelling. IMPRESSION: Mild degenerative change in the lower cervical spine. Suboptimal odontoid view. If clinically indicated MRI or CT could be performed for further evaluation. Reviewed by: Wilber Christianson MD on 03/09/2020 5:35 PM PST Approved by: Wilber Christianson MD on 03/09/2020 5:35 PM PST Station ID: [id number]
== END 2020-03-09 23:59 | disposition home or self-care (01) ==
LOC: DI.N 16:35
PROVIDERS: ATTEND Physician Assistant
DX: M47.812 Spondylosis without myelopathy or radiculopathy, cervical region (principal)

== ENCOUNTER 2020-12-21 09:30 | Outpatient (CLI) | payer MEDICAID ==
[2020-12-21 11:56] LABS: BASOPHILS % (AUTO) 0.6 %; EOSINOPHILS # (AUTO) 0.3 10^3/uL (0.0-0.7); EOSINOPHILS % (AUTO) 4.7 %; HCT - HEMATOCRIT 34.8 % (37.0-47.0); HGB - HEMOGLOBIN 9.7 g/dL (12.0-16.0); LYMPHOCYTES # (AUTO) 1.6 10^3/uL (1.5-3.5); MEAN CORPUSCULAR HEMOGLOBIN 21.1 pg (27.0-31.0); MEAN CORPUSCULAR HGB CONC 27.9 g/dL (32.0-36.0); MEAN CORPUSCULAR VOLUME 75.8 fL (81.0-99.0); MEAN PLATELET VOLUME 11.6 fL (7.9-10.8); MONOCYTES # (AUTO) 0.7 10^3/uL (0.0-1.0); MONOCYTES % (AUTO) 9.6 %; NEUTROPHILS # (AUTO) 4.4 10^3/uL (1.5-6.6); NEUTROPHILS % (AUTO) 61.7 %; PLT - PLATELET COUNT 257 10^3/uL (130-450); RED BLOOD COUNT 4.59 10^6/uL (4.20-5.40); RED CELL DISTRIBUTION WIDTH 15.6 % (12.0-15.0); WHITE BLOOD COUNT 7.1 x10^3/uL (4.8-10.8)
[2020-12-21 11:59] LABS: SLIDE REVIEW? Indicated
[2020-12-21 12:17] LABS: PLATELET ESTIMATE, MANUAL NORMAL (130-450,000) (NORMAL); PLATELET MORPHOLOGY NORMAL APPEARANCE (NORMAL); RBC MORPHOLOGY (MULTIPLE) 1+ HYPOCHROMASIA (NORMAL)
[2020-12-21 12:18] LABS: % IRON SATURATION 4 % (20-50); ALBUMIN 4.3 g/dL (3.2-5.5); ALBUMIN/GLOBULIN RATIO 1.4 (1.0-2.2); ALKALINE PHOSPHATASE 43 IU/L (42-121); ALT ALANINE AMINOTRANSFERASE 16 IU/L (10-60); AST ASPARTATE AMINOTRANSFERASE 20 IU/L (10-42); BILIRUBIN,TOTAL 0.5 mg/dL (0.2-1.0); BUN - BLOOD UREA NITROGEN 18 mg/dL (6-20); CALCIUM 9.2 mg/dL (8.5-10.3); CARBON DIOXIDE - CO2 26 mmol/L (21-32); CHLORIDE 106 mmol/L (101-111); CHOL/HDL RATIO 2.9 (<4.4); CHOLESTEROL 169 mg/dL; CREATININE 0.8 mg/dL (0.4-1.0); GFR - MDRD 77 (>89); GLUCOSE 97 mg/dL (70-100); HDL CHOLESTEROL 58 mg/dL; IRON 21 ug/dL (28-170); LDL CHOLESTEROL,CALCULATED 100 mg/dL; LDL/HDL RATIO 1.7 (<4.4); POTASSIUM 4.2 mmol/L (3.5-5.0); SODIUM 140 mmol/L (135-145); TOTAL IRON BINDING CAPACITY 491 ug/dL (250-450); TOTAL PROTEIN 7.3 g/dL (6.7-8.2); TRANSFERRIN 351 mg/dL (192-382); TRIGLYCERIDES 56 mg/dL; VLDL CHOLESTEROL 11 mg/dL
[2020-12-21 12:47] LABS: THYROID STIMULATING HORMONE 0.51 uIU/mL (0.34-5.60)
[2020-12-21 12:51] LABS: FREE T4 (FREE THYROXINE) 0.76 ng/dL (0.58-1.64)
[2020-12-21 13:14] LABS: FOLLICLE STIMULATING HORMONE 3.99 mIU/mL
[2020-12-21 13:15] LABS: LUTEINIZING HORMONE 1.8 mIU/mL
== END 2020-12-21 23:59 | disposition home or self-care (01) ==
LOC: LAB.WCP 09:30
PROVIDERS: ATTEND Nurse Practitioner
DX: Z78.0 Asymptomatic menopausal state (principal); Z13.220 Encounter for screening for lipoid disorders; G25.81 Restless legs syndrome
CPT/HCPCS: 36415; 80053; 80061; 83001; 83002; 83540; 83721; 84439; 84443; 84466; 85025

== ENCOUNTER 2021-01-13 14:49 | Outpatient (CLI) | payer MEDICAID ==
--- NOTE | 2021-01-13 18:17 | Ultrasound Report ---
PROCEDURE: Pelvic w/Transvaginal INDICATIONS: MENORRHAGIA, PERIMENOPAUSAL TECHNIQUE: Real-time scanning was performed of the pelvic organs, with image documentation. Additional endovagi nal scanning was necessary due to incomplete visualization of the adnexal and endometrial structures by transabdominal scanning. COMPARISON: July 19, 2018 FINDINGS: No pathologic free abdominal or pelvic fluid. Uterus: Uterus is normal in size at 9.2 x 4.7 x 6.7 cm. The uterine echotexture is heterogeneous. Th e endometrium measures 4 mm in combined thickness. An apparent feeding vessel can be seen along the posterior lower uterine segment, without an associated polyp. Ovaries: The right ovary measures 3.5 x 1.9 x 1.9 cm, with a calculated volume of 6.6 cc and the lef t ovary measures 2.9 x 1.5 x 2.3 cm, with a calculated volume of 5.2 cc. No significant ovarian abno rmalities are seen. There are less than 12 follicles seen on each side. No adnexal masses are seen . IMPRESSION: There is a feeder vessel seen along the lower uterine segment posteriorly, without an associated poly p. The endometrial stripe is not thickened. Heterogeneous uterus, without masses seen. Normal-appearing ovaries. Reviewed by: Yo Gray MD on 01/13/2021 5:16 PM TERRY Approved by: Yo Gray MD on 01/13/2021 5:16 PM TERRY Station ID: [id number]
== END 2021-01-13 14:50 | disposition home or self-care (01) ==
LOC: DI 14:49
PROVIDERS: ATTEND Obstetrics & Gynecology
DX: N92.0 Excessive and frequent menstruation with regular cycle (principal); Z78.0 Asymptomatic menopausal state; R93.89 Abnormal findings on diagnostic imaging of other specified body structures

== ENCOUNTER 2021-01-17 09:03 | Outpatient (CLI) | payer MEDICAID ==
--- NOTE | 2021-01-18 09:05 | Mammography Report ---
BILATERAL DIGITAL SCREENING MAMMOGRAM 3D/2D: 01/17/2021 CLINICAL: Routine screening. Comparison is made to exam dated: 02/12/2018 mammogram - [facility]. The tissue of both breasts is heterogeneously dense. This may lower the sensitivity of mammography. No significant masses, calcifications, or other findings are seen in either breast. There has been no significant interval change. IMPRESSION: NEGATIVE There is no mammographic evidence of malignancy. A 1 year screening mammogram is recommended. This exam was interpreted at Station ID: [id number]. NOTE: For mammograms, a report in lay terms will be sent to the patient. Approximately 15% of breast malignancies will not be visualized mammographically. In the management of a palpable breast mass, a negative mammogram must not discourage biopsy of a clinically suspicious lesion. Electronically Signed By: Wilber Christianson M.D. slc/penrad:01/17/2021 10:23:06 ACR BI-RADS Category 1: Negative 3341F PARENCHYMAL PATTERN: (D) - The breast(s) demonstrate(s) heterogeneously dense fibroglandular janice cortez. BI-RADS CATEGORY: (1) - 1 RECOMMENDATION: (ANNUAL) - Recommend routine annual screening mammography. [id number] 1 year screening LATERALITY: (B)
== END 2021-01-17 09:04 | disposition home or self-care (01) ==
LOC: DI.N 09:03
PROVIDERS: ATTEND Nurse Practitioner
DX: Z12.31 Encounter for screening mammogram for malignant neoplasm of breast (principal)

== ENCOUNTER 2021-02-07 08:01 | Outpatient (CLI) | payer MEDICAID ==
[2021-02-07 12:28] LABS: BASOPHILS # (AUTO) 0.1 10^3/uL (0.0-0.1); BASOPHILS % (AUTO) 0.7 %; EOSINOPHILS # (AUTO) 0.3 10^3/uL (0.0-0.7); EOSINOPHILS % (AUTO) 4.3 %; HCT - HEMATOCRIT 40.8 % (37.0-47.0); LYMPHOCYTES # (AUTO) 1.8 10^3/uL (1.5-3.5); MEAN CORPUSCULAR HEMOGLOBIN 23.8 pg (27.0-31.0); MEAN CORPUSCULAR HGB CONC 29.4 g/dL (32.0-36.0); MEAN PLATELET VOLUME 11.7 fL (7.9-10.8); MONOCYTES # (AUTO) 0.7 10^3/uL (0.0-1.0); MONOCYTES % (AUTO) 9.6 %; NEUTROPHILS # (AUTO) 4.3 10^3/uL (1.5-6.6); NEUTROPHILS % (AUTO) 60.1 %; PLT - PLATELET COUNT 222 10^3/uL (130-450); RED BLOOD COUNT 5.04 10^6/uL (4.20-5.40); RED CELL DISTRIBUTION WIDTH 20.8 % (12.0-15.0); WHITE BLOOD COUNT 7.2 x10^3/uL (4.8-10.8)
[2021-02-07 12:40] LABS: SLIDE REVIEW? Indicated
[2021-02-07 13:48] LABS: PLATELET ESTIMATE, MANUAL NORMAL (130-450,000) (NORMAL); PLATELET MORPHOLOGY NORMAL APPEARANCE (NORMAL); RBC MORPHOLOGY (MULTIPLE) NORMAL APPEARANCE (NORMAL)
== END 2021-02-07 08:02 | disposition home or self-care (01) ==
LOC: LAB.N 08:01
PROVIDERS: ATTEND Obstetrics & Gynecology
DX: Z01.812 Encounter for preprocedural laboratory examination (principal); N92.0 Excessive and frequent menstruation with regular cycle; R93.89 Abnormal findings on diagnostic imaging of other specified body structures; Z20.822 Contact with and (suspected) exposure to COVID-19
CPT/HCPCS: 36415; 85025

== ENCOUNTER 2021-02-08 06:23 | Day surgery (SDC) | payer MEDICAID ==
[~2021-02-08 06:23] MED LIST: ACETAMINOPHEN 1,000 MG/100 ML 100 ML IV ONE; CELECOXIB 100 MG CAPSULE PO ONE; GABAPENTIN 400 MG CAPSULE ONE
[2021-02-08 06:46] LABS: HCG UR QUAL NEGATIVE
[2021-02-08] MEDS ORDERED: LACTATED RINGERS 1,000 ML IV ONE ×3 (06:57→09:16)
[2021-02-08] MEDS ORDERED: PROPOFOL 200 MG/20 ML VIAL IVP ONE (07:03)
[2021-02-08] MEDS ORDERED: ONDANSETRON 4 MG/2 ML VIAL ONE (07:03)
[2021-02-08] MEDS ORDERED: fentaNYL 100 MCG/2 ML VIAL ONE (07:03)
[2021-02-08] MEDS ORDERED: LIDOCAINE-MPF 2% 5 ML VIAL ONE (07:03)
[2021-02-08] MEDS ORDERED: DEXAMETHASONE 4 MG/ML VIAL ONE (07:03)
[2021-02-08] MEDS ORDERED: MIDAZOLAM 2 MG/2 ML VIAL ONE (07:03)
--- NOTE | 2021-02-08 07:14 | ANESTHESIA ---
Pre-Anesthesia VS, & Labs - Diagnosis menorrhagia, abnormal ultrasound finding - Procedure myosure hysteroscopy, polypectomy Vital Signs: Temp Pulse Resp BP Pulse Ox 36.8 C 85 16 107/75 97 02/08/21 06:58 02/08/21 06:58 02/08/21 06:58 02/08/21 06:58 02/08/21 06:58 Height: 5 ft 10 in Weight (kg): 71.3 kg Body Mass Index: 22.5 BMI Classification: Healthy weight - NPO >8 hours - Is Patient ?: No - Lab Results Current Lab Results: Laboratory Tests 02/08/21 06:45: POC Whole Bld Glucose 111 H Lab results reviewed: Yes Home Medications and Allergies Citalopram [CeleXA] 40 mg PO DAILY 10/19/15 Albuterol Sulfate [Proair Hfa Inhaler] 1 puffs INH PRN PRN 04/26/16 Allergies/Adverse Reactions: Allergies Allergy/AdvReac Type Severity Reaction Status Date / Time prochlorperazine AdvReac Unknown Verified 11/06/19 12:10 [From Compazine] prochlorperazine edisylate * AdvReac dystonic Verified 02/02/21 12:15 [From Compazine] reaction prochlorperazine maleate * AdvReac Unknown Verified 11/06/19 12:10 [From Compazine] Anes History & Medical History - Anesthetic History Anesthesia Complications: reports: No previous complications Family history of Anesthesia Complications: Denies Family history of Malignant Hyperthermia: Denies - Medical History Cardiovascular: reports: None Pulmonary: reports: Asthma Gastrointestinal: reports: Other Urinary: reports: None Neuro: reports: None Musculoskeletal: reports: None Endocrine/Autoimmune: reports: None Blood Disorders: reports: None Skin: reports: None Smoking Status: Never smoker - Surgical History General: reports: Other Gynecologic: reports: Other Exam General: Alert, Oriented x3, Cooperative, No acute distress Dental: WNL Mouth Openin Fingerbreadth Neck Mobility: Normal Respiratory: Lungs clear, Normal breath sounds, No respiratory distress, No accessory muscle use Cardiovascular: Regular rate, Normal S1, Normal S2, No murmurs Plan Anesthesia Type: General Consent for Procedure(s) Verified and Reviewed: Yes Code Status: Attempt Resuscitation ASA classification: 2-Mild systemic disease Is this case an emergency?: No
[2021-02-08] MEDS ORDERED: ePHEDrine 50 MG/ML VIAL IVP PRN (07:15)
[2021-02-08] MEDS ORDERED: ATROPINE ABBOJECT 1 MG/10 ML SYRINGE IVP PRN (07:15)
[2021-02-08] MEDS ORDERED: MORPHINE 2 MG/ML CARPUJECT IVP PRN (07:15)
[2021-02-08] MEDS ORDERED: METOCLOPRAMIDE 10 MG/2 ML VIAL IVP PRN (07:15)
[2021-02-08] MEDS ORDERED: fentaNYL 100 MCG/2 ML VIAL IVP PRN (07:15)
[2021-02-08] MEDS ORDERED: ONDANSETRON 4 MG/2 ML VIAL IVP PRN (07:15)
[2021-02-08] MEDS ORDERED: NALOXONE 0.4 MG/ML VIAL IVP PRN (07:15)
[2021-02-08] MEDS ORDERED: SCOPOLAMINE PATCH TOP ONE (07:18)
[2021-02-08] MEDS ORDERED: LIDOCAINE MPF 2%-EPI 1:200000 20 ML VIAL ONE (07:26)
[2021-02-08] MEDS ORDERED: SILVER NITRATE APPLICATOR TOP ONE (07:26)
[2021-02-08] MEDS ORDERED: BUPIVACAINE 0.25% PF 30 ML VIAL ONE (07:26)
[2021-02-08] MEDS ORDERED: LACTATED RINGERS 1,000 ML IV SCH (08:00)
[2021-02-08] MEDS ORDERED: SCOPOLAMINE PATCH TOP SCH (08:00)
[2021-02-08] MEDS ORDERED: BUPIVACAINE 0.25% PF 10 ML VIAL SUBQ ONE (08:22)
[2021-02-08] MEDS ORDERED: LIDOCAINE 2%-EPI 1:100000 20 ML MDV SUBQ ONE (08:23)
--- NOTE | 2021-02-08 08:53 | OPERATIVE REPORT ---
Operative Report - General Procedure Date: 02/08/21 Planned Procedure: Hysteroscopy D&C with polypectomy Pre-Op Diagnosis: Abnormal uterine bleeding, uterine polyp Procedure Performed: Hysteroscopy D&C with polypectomy Post Op Diagnosis: Abnormal uterine bleeding, uterine polyp - Procedure Note Primary Surgeon: Sandeep Collins MD Anesthesia Provider: Sonu Martines CRNA Anesthesia Technique: General ET tube Pathology: Endometrial curettings IV Fluids (mL): 800 Estimated Blood Loss (mL): 5 Urine Output (mL): 50 Findings: Likely polyp appearing growth at entrance of uterus. Proliferative appearing endometrium. Complications: None - Other Other Information/Narrative: Patient was taken to the procedure room and placed in dorsal lithotomy position. Patient was prepped and draped in usual sterile fashion. [place] speculum was palced in the vagina and the cervix was visualized. The anterior lip of the cervix was grasped with a single-tooth tenaculum. The cervix was noted to be nonstenotic and allowed the easy passage of dilators. Hysteroscope was then used to hydrodilate using normal saline distention media. Hysteroscope was advanced without difficulty using hydrodistention. Upon entry into the internal cervical os there was noted to be proliferative endometrium within the uterus. There appeared to be a polypoid lesion at the entrance of the uterus. Due to the difficulty in distending the uterus, we were not able to see the ostia. We did shave some of the endometrium off, but due to concern of thinning the uterine wall, we did not dissect further. Hemostasis was noted. Hysteroscope was then removed. Tenaculum was then removed from the cervix noted to be hemostatic. All instruments removed from the vagina. Curettings were sent to pathology. Fluid deficit was 770 mL
[2021-02-08] MEDS: HYDROmorphone 0.5 MG/0.5 ML SYRINGE IVP PRN ×2 (09:02→09:21)
--- NOTE | 2021-02-08 09:06 | ANESTHESIA POST OP EVALUATION ---
Anesthesia Post Eval - Post Anesthesia Eval Vitals: Last Vital Signs Temp 36.6 C 02/08/21 08:51 Pulse 84 02/08/21 09:00 Resp 10 L 02/08/21 09:00 BP 116/76 02/08/21 09:00 Pulse Ox 100 02/08/21 09:00 CV Function Including HR & BP: Stable Pain Control: Satisfactory Nausea & Vomiting: Negative Mental Status: Baseline Respiratory Status: Airway Patent Hydration Status: Satisfactory Anesthesia Complications: None
[2021-02-08] MEDS ORDERED: HYDROmorphone 0.5 MG/0.5 ML SYRINGE ONE ×2 (09:07→09:26)
[2021-02-08 10:49] VITALS: BP 109/72
== END 2021-02-08 06:24 | disposition home or self-care (01) ==
LOC: SDS 06:23
PROVIDERS: ATTEND Obstetrics & Gynecology
PROC: 0UDB8ZZ Extraction of Endometrium, Via Natural or Artificial Opening Endoscopic (ICD-10-PCS; 2021-02-08)
PROC: 0UB98ZZ Excision of Uterus, Via Natural or Artificial Opening Endoscopic (ICD-10-PCS; principal; 2021-02-08 07:30)
DX: N93.9 Abnormal uterine and vaginal bleeding, unspecified (principal); N84.0 Polyp of corpus uteri; N92.0 Excessive and frequent menstruation with regular cycle
CPT/HCPCS: 58558; 81025; A9270; J0131; J1170; J3490; J7120; 85027

== ENCOUNTER 2021-03-15 16:41 | Emergency (ER) | payer MEDICAID ==
[2021-03-15 17:06] LABS: BASOPHILS # (AUTO) 0.1 10^3/uL (0.0-0.1); BASOPHILS % (AUTO) 0.8 %; EOSINOPHILS # (AUTO) 0.3 10^3/uL (0.0-0.7); EOSINOPHILS % (AUTO) 3.7 %; HCT - HEMATOCRIT 39.1 % (37.0-47.0); HGB - HEMOGLOBIN 12.1 g/dL (12.0-16.0); LYMPHOCYTES # (AUTO) 2.2 10^3/uL (1.5-3.5); LYMPHOCYTES % (AUTO) 26.6 %; MEAN CORPUSCULAR HEMOGLOBIN 24.7 pg (27.0-31.0); MEAN CORPUSCULAR HGB CONC 30.9 g/dL (32.0-36.0); MEAN PLATELET VOLUME 10.2 fL (7.9-10.8); MONOCYTES # (AUTO) 0.6 10^3/uL (0.0-1.0); MONOCYTES % (AUTO) 7.3 %; NEUTROPHILS # (AUTO) 5.1 10^3/uL (1.5-6.6); NEUTROPHILS % (AUTO) 61.2 %; PLT - PLATELET COUNT 234 10^3/uL (130-450); RED BLOOD COUNT 4.89 10^6/uL (4.20-5.40); WHITE BLOOD COUNT 8.3 x10^3/uL (4.8-10.8)
[2021-03-15 17:20] LABS: ALBUMIN 4.3 g/dL (3.2-5.5); ALBUMIN/GLOBULIN RATIO 1.3 (1.0-2.2); BILIRUBIN,TOTAL 0.6 mg/dL (0.2-1.0); CALCIUM 9.6 mg/dL (8.5-10.3); CREATININE 0.9 mg/dL (0.4-1.0); POTASSIUM 3.7 mmol/L (3.5-5.0); TOTAL PROTEIN 7.5 g/dL (6.7-8.2)
--- NOTE | 2021-03-15 17:31 | ED Physician Documentation ---
History of Present Illness - Stated complaint Stated Complaint: FLANK PX IN MID BACK - Chief complaint Chief Complaint: Abd Pain - History obtained from History obtained from: Patient - History of Present Illness Timing: How many days ago (3-4) Pain level max: 8 Pain level now: 2 - Additonal information Additional information: Patient is a 45-year-old female who presents to the emergency department with right upper quadrant/right flank pain. Intermittent for the past 2 to 3 days. She states that she was seen at the walk-in clinic yesterday and told that there was a small amount of blood in her urine and that she may have a kidney stone. Patient does not have any history of kidney stones. Not have any new dysuria, urinary frequency or gross hematuria. Does have some nausea but no vomiting. Nothing seems to make it better or worse. Has never had similar symptoms previously. Denies any possibility of . She is not breast-feeding. Review of Systems Ten Systems: 10 systems reviewed and negative Constitutional: denies: Fever, Chills Throat: denies: Sore throat GI: denies: Vomiting, Diarrhea : denies: Dysuria, Frequency, Hesitancy, Now EGA Skin: denies: Rash Musculoskeletal: denies: Neck pain, Back pain Neurologic: denies: Headache PD PAST MEDICAL HISTORY - Past Medical History Cardiovascular: None Respiratory: Asthma Neuro: None Endocrine/Autoimmune: None GI: Other TAIL RIPPER: Endometriosis : None HEENT: Chronic vision loss Psych: Depression, Anxiety, Panic attacks Musculoskeletal: None Derm: None - Past Surgical History Past Surgical History: Yes General: Other /TAIL RIPPER: Other - Present Medications Home Medications: Ambulatory Orders Medication Instructions Recorded Confirmed Citalopram [CeleXA] 40 mg PO DAILY 10/19/15 03/15/21 Albuterol Sulfate [Proair Hfa 1 puffs INH PRN PRN 04/26/16 03/15/21 Inhaler] HYDROcod/ACETAM 5/325 [[place] 5/325] 1 - 2 ea PO Q6H PRN #14 tablet 03/15/21 Ibuprofen [Motrin] 800 mg PO Q8H PRN #30 tablet 03/15/21 Ketorolac [Toradol] 10 mg PO Q6H 03/15/21 03/15/21 Ondansetron Odt [Zofran Odt] 4 mg TL Q6H PRN 03/15/21 03/15/21 - Allergies Allergies/Adverse Reactions: Allergies Allergy/AdvReac Type Severity Reaction Status Date / Time prochlorperazine AdvReac Unknown Verified 03/15/21 16:48 [From Compazine] prochlorperazine edisylate * AdvReac dystonic Verified 03/15/21 16:48 [From Compazine] reaction prochlorperazine maleate * AdvReac Unknown Verified 03/15/21 16:48 [From Compazine] - Social History Does the pt smoke?: No Smoking Status: Never smoker Does the pt drink ETOH?: No Does the pt have substance abuse?: No - Immunizations Immunizations are current?: Yes Immunizations: TDAP current <10years - POLST Patient has POLST: No PD ED PE NORMAL - Vitals Vital signs reviewed: Yes - General General: Alert and oriented X 3, No acute distress - HEENT HEENT: Moist mucous membranes - Neck Neck: Supple, no meningeal sign - Cardiac Cardiac: RRR, Strong equal pulses - Respiratory Respiratory: No respiratory distress, Clear bilaterally - Abdomen Abdomen: Soft, Non distended, Other (Tender to palpation right upper quadrant without peritoneal signs. Positive Mckeon.) - Back Back: No CVA TTP, No spinal TTP - Derm Derm: Warm and dry - Neuro Neuro: Alert and oriented X 3 - Psych Psych: Normal mood, Normal affect Results - Vitals Vitals: Vital Signs - 24 hr 03/15/21 03/15/21 03/15/21 16:48 17:40 19:07 Temperature 36.5 C Heart Rate 71 72 60 Respiratory 16 16 16 Rate Blood Pressure 123/61 107/62 125/84 H O2 Saturation 98 99 100 03/15/21 19:15 Temperature 36.8 C Heart Rate 67 Respiratory 16 Rate Blood Pressure 125/84 H O2 Saturation 100 Oxygen O2 Source Room air - Labs Labs: Laboratory Tests 03/15/21 03/15/21 03/15/21 16:59 16:59 16:59 WBC 8.3 RBC 4.89 Hgb 12.1 Hct 39.1 MCV 80.0 L MCH 24.7 L MCHC 30.9 L RDW 17.0 H Plt Count 234 MPV 10.2 Neut # (Auto) 5.1 Lymph # (Auto) 2.2 Bond # (Auto) 0.6 Eos # (Auto) 0.3 Baso # (Auto) 0.1 Absolute Nucleated RBC 0.00 Nucleated RBC % 0.0 Sodium 139 Potassium 3.7 Chloride 103 Carbon Dioxide 27 Anion Gap 9.0 BUN 17 Creatinine 0.9 Estimated GFR (MDRD) 67 L Glucose 102 H Calcium 9.6 Total Bilirubin 0.6 AST 21 ALT 16 Alkaline Phosphatase 66 Total Protein 7.5 Albumin 4.3 Globulin 3.2 Albumin/Globulin Ratio 1.3 Lipase 30 Urine Color YELLOW Urine Clarity CLEAR Urine pH 6.0 Ur Specific [place] 1.025 Urine Protein NEGATIVE Urine Glucose (UA) NEGATIVE Urine Ketones NEGATIVE Urine Occult Blood NEGATIVE Urine Nitrite NEGATIVE Urine Bilirubin NEGATIVE Urine Urobilinogen 1 (NORMAL) Ur Leukocyte Esterase NEGATIVE Ur Microscopic Review NOT INDICATED Urine Culture Comments NOT INDICATED - Rads (name of study) Right upper quadrant ultrasound Radiology: Final report received, EMP read contemporaneously, See rad report PD MEDICAL DECISION MAKING - ED course Complexity details: reviewed results, re-evaluated patient, considered differential, d/w patient ED course: Patient is a 45-year-old female who presents to the emergency department with right flank pain. Her ultrasound shows several small intrarenal stones. Likely that she is passing small kidney stones causing her right-sided pain. Normal gallbladder. No significant lab abnormalities. No abnormalities on urinalysis. We will prescribe pain medication for home and have her follow-up with her doctor for further care. I am prescribing a short course of short-acting opioid pain medication for this patient. 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 I have discussed that the opioids are for short term therapy only, and will not be refilled from the ED. patient counseled regarding signs and symptoms for which I believe and urgent re-evaluation would be necessary. Patient with good understanding of and agreement to plan and is comfortable going home at this time This document was made in part using voice recognition software. While efforts are made to proofread this document, sound alike and grammatical errors may occur. IMPRESSION: Redemonstration of known nonobstructing right nephroliths measuring up to 4 mm in combined size. No hydronephrosis. Otherwise, unremarkable sonographic evaluation of the right upper abdomen without acute sonographic abnormalities. Departure - Departure Disposition: 01 Home, Self Care Clinical Impression: Ureteral calculus, right Condition: Good Instructions: ED Stone Renal W Colic Follow-Up: Che Campos ARNP [Primary Care Provider] - Within 1 week Prescriptions: Ibuprofen [Motrin] 800 mg PO Q8H PRN #30 tablet PRN Reason: PAIN &/OR FEVER HYDROcod/ACETAM 5/325 [[place] 5/325] 1 - 2 ea PO Q6H PRN #14 tablet PRN Reason: Pain Comments: You have several very small kidney stones. It is likely that you are passing the stones. Your blood work and ultrasound did not show any acute he other than this. Please follow-up with your doctor for further care. [facility] prescriptions [facility] in [place]. I am prescribing a short course of narcotic pain medication for you. These are potentially dangerous and addictive medications that should be used carefully. These medications may constipate you. Take an lyre-esq-sfrvmfv stool softener (docusate) twice daily with plenty of water while taking these medications. If you go 24 hours without a bowel movement, take ttbu-ktq-hircgve miralax, per package instructions. Do not drink or drive while taking these medications. If you received narcotic or sedating medications while in the emergency department, do not drive for 24 hours. Store this medication in a safe, secure place and out of reach of children. It is a violation of federal law to give or sell this medication to another person or to use in a manner other than prescribed. The ED will not refill narcotic prescriptions, including prescriptions lost or stolen. To dispose of unwanted medications: 1. [facility] at [address] in [place] has a medication drop box. They accept prescription medications (in pill form) Friday through Friday 9:00 a.m. to 5:00 p.m. 2. The [employer] [facility] [employer] accepts prescription medications (in pill form only) for disposal year round. Call for more information. 3. Contact the [facility] for the next COUNT INCLUDES THE [facility] sponsored prescription drug collection event. , [phone], or [phone]; Discharge Date/Time: 03/15/21 19:54
[2021-03-15 17:51] LABS: BILIRUBIN,URINE NEGATIVE (NEGATIVE); GLUCOSE, URINE (UA) NEGATIVE (NEGATIVE); KETONES,URINE (UA) NEGATIVE (NEGATIVE); LEUKOCYTE ESTERASE, URINE NEGATIVE (NEGATIVE); NITRITE,URINE NEGATIVE (NEGATIVE); OCCULT BLOOD,URINE NEGATIVE (NEGATIVE); PROTEIN,URINE NEGATIVE (NEGATIVE); UROBILINOGEN,URINE 1 (NORMAL) E.U./dL (NORMAL)
[2021-03-15 17:53] LABS: CLARITY,URINE CLEAR (CLEAR)
--- NOTE | 2021-03-15 19:07 | Ultrasound Report ---
PROCEDURE: Abdomen Limited INDICATIONS: RUQ abd pain/flank pain TECHNIQUE: Real-time scanning was performed of the abdominal and retroperitoneal organs, with image documentatio n. COMPARISON: CT abdomen and pelvis dated 07/19/2018 FINDINGS: Liver: Liver is normal in size and homogeneous in echotexture. Gallbladder: Gallbladder is normal in appearance without gallstones, wall thickening, or pericholecys tic fluid. Negative sonographic Mckeon's. Biliary ducts: Intrahepatic bile ducts are non-dilated. Extrahepatic bile duct caliber measures mm. Normal is 6-7 mm or less in diameter, or 10 mm or less post-cholecystectomy. Pancreas: Visualized portions of the pancreas are sonographically normal. Kidneys: Right kidney is normal in size and echotexture. Right kidney measures 10.5 cm long; there i s a small cluster of tiny echogenic foci in the right kidney compatible with known renal stones. Thes e measure approximately 4 mm in combined size. No hydronephrosis. No solid masses. Miscellaneous: No free abdominal fluid. IMPRESSION: Redemonstration of known nonobstructing right nephroliths measuring up to 4 mm in combined size. No h ydronephrosis. Otherwise, unremarkable sonographic evaluation of the right upper abdomen without acute sonographic a bnormalities. Reviewed by: Mina Marcos MD on 03/15/2021 7:06 PM [facility] Approved by: Mina Marcos MD on 03/15/2021 7:06 PM PST Station ID: [id number]
[2021-03-15 19:08] VITALS: BP 125/84
== END 2021-03-15 19:54 | disposition home or self-care (01) ==
LOC: ED 16:41
DX: N20.2 Calculus of kidney with calculus of ureter (principal)
CPT/HCPCS: 36415; 80053; 81001; 81003; 83690; 85025; 87086; 99284

== ENCOUNTER 2021-09-05 08:49 | Outpatient (CLI) | payer MEDICAID ==
--- NOTE | 2021-09-05 18:01 | Ultrasound Report ---
PROCEDURE: Pelvic w/Transvaginal INDICATIONS: ABN UTERINE BLEEDING TECHNIQUE: Real-time scanning was performed of the pelvic organs, with image documentation. Additional endovagi nal scanning was necessary due to incomplete visualization of the adnexal and endometrial structures by transabdominal scanning. COMPARISON: 01/13/2021. FINDINGS: No pathologic free abdominal or pelvic fluid. Uterus: Uterus is normal in size at 10.0 x 5.2 x 6.7 cm. Uterus contains a heterogeneous coarsened appearance with small cystic areas raising the question of possible adenomyosis. The endometrium sergio ures 9.6 mm in combined thickness. Ovaries: Right ovary measures 3.8 x 2.9 x 2.5 cm with a volume of 14.1 mL. Left ovary measures 3.3 x 1.5 x 2.1 cm with a ovarian volume of 5.5 mL. There is a ruptured right ovarian cyst measuring 2.1 x 1.1 x 1.3 cm. IMPRESSION: 1. The appearance of the uterus suggests possibility of adenomyosis. 2. Normal endometrial thickness. Reviewed by: Praful Bourne MD on 09/05/2021 6:00 PM PDT Approved by: Praful Bourne MD on 09/05/2021 6:00 PM PDT Station ID: [id number]
== END 2021-09-05 08:50 | disposition home or self-care (01) ==
LOC: DI 08:49
PROVIDERS: ATTEND Obstetrics & Gynecology
DX: N93.9 Abnormal uterine and vaginal bleeding, unspecified (principal)

== ENCOUNTER 2021-09-17 13:50 | Outpatient (CLI) | payer MEDICAID ==
[2021-09-17 14:04] LABS: BASOPHILS # (AUTO) 0.1 10^3/uL (0.0-0.1); BASOPHILS % (AUTO) 0.8 %; EOSINOPHILS # (AUTO) 0.2 10^3/uL (0.0-0.7); EOSINOPHILS % (AUTO) 2.8 %; HCT - HEMATOCRIT 32.5 % (37.0-47.0); HGB - HEMOGLOBIN 9.6 g/dL (12.0-16.0); LYMPHOCYTES # (AUTO) 1.6 10^3/uL (1.5-3.5); LYMPHOCYTES % (AUTO) 25.5 %; MEAN CORPUSCULAR HEMOGLOBIN 22.7 pg (27.0-31.0); MEAN CORPUSCULAR HGB CONC 29.5 g/dL (32.0-36.0); MEAN CORPUSCULAR VOLUME 76.8 fL (81.0-99.0); MONOCYTES # (AUTO) 0.6 10^3/uL (0.0-1.0); MONOCYTES % (AUTO) 9.4 %; NEUTROPHILS # (AUTO) 3.9 10^3/uL (1.5-6.6); PLT - PLATELET COUNT 242 10^3/uL (130-450); RED BLOOD COUNT 4.23 10^6/uL (4.20-5.40); RED CELL DISTRIBUTION WIDTH 15.2 % (12.0-15.0); WHITE BLOOD COUNT 6.4 x10^3/uL (4.8-10.8)
== END 2021-09-17 13:51 | disposition home or self-care (01) ==
LOC: LAB 13:50
PROVIDERS: ATTEND Obstetrics & Gynecology
DX: Z01.812 Encounter for preprocedural laboratory examination (principal); N93.9 Abnormal uterine and vaginal bleeding, unspecified; Z20.822 Contact with and (suspected) exposure to COVID-19
CPT/HCPCS: 36415; 85025; 86850; 86900; 86901

== ENCOUNTER 2022-05-03 11:04 | Outpatient (CLI) | payer MEDICAID ==
[2022-05-03 17:38] LABS: BASOPHILS # (AUTO) 0.1 10^3/uL (0.0-0.1); BASOPHILS % (AUTO) 1.1 %; EOSINOPHILS # (AUTO) 0.3 10^3/uL (0.0-0.7); EOSINOPHILS % (AUTO) 4.5 %; HCT - HEMATOCRIT 39.4 % (37.0-47.0); HGB - HEMOGLOBIN 11.7 g/dL (12.0-16.0); LYMPHOCYTES # (AUTO) 1.7 10^3/uL (1.5-3.5); LYMPHOCYTES % (AUTO) 26.2 %; MEAN CORPUSCULAR HEMOGLOBIN 25.2 pg (27.0-31.0); MEAN CORPUSCULAR HGB CONC 29.7 g/dL (32.0-36.0); MEAN CORPUSCULAR VOLUME 84.7 fL (81.0-99.0); MEAN PLATELET VOLUME 11.7 fL (7.9-10.8); MONOCYTES # (AUTO) 0.6 10^3/uL (0.0-1.0); MONOCYTES % (AUTO) 9.3 %; NEUTROPHILS # (AUTO) 3.9 10^3/uL (1.5-6.6); NEUTROPHILS % (AUTO) 58.6 %; PLT - PLATELET COUNT 264 10^3/uL (130-450); RED BLOOD COUNT 4.65 10^6/uL (4.20-5.40); RED CELL DISTRIBUTION WIDTH 15.2 % (12.0-15.0); WHITE BLOOD COUNT 6.6 x10^3/uL (4.8-10.8)
[2022-05-03 18:05] LABS: ALBUMIN 3.9 g/dL (3.2-5.5); ALBUMIN/GLOBULIN RATIO 1.2 (1.0-2.2); ALKALINE PHOSPHATASE 65 IU/L (42-121); ALT ALANINE AMINOTRANSFERASE 13 IU/L (10-60); AST ASPARTATE AMINOTRANSFERASE 18 IU/L (10-42); BILIRUBIN,TOTAL 0.5 mg/dL (0.2-1.0); BUN - BLOOD UREA NITROGEN 18 mg/dL (6-20); CALCIUM 9.3 mg/dL (8.5-10.3); CARBON DIOXIDE - CO2 29 mmol/L (21-32); CHLORIDE 102 mmol/L (101-111); CHOL/HDL RATIO 3.1 (<4.4); CHOLESTEROL 163 mg/dL; CREATININE 0.9 mg/dL (0.4-1.0); GFR - MDRD 67 (>89); GLUCOSE 89 mg/dL (70-100); HDL CHOLESTEROL 53 mg/dL; LDL CHOLESTEROL,CALCULATED 101 mg/dL; LDL/HDL RATIO 1.9 (<4.4); POTASSIUM 4.1 mmol/L (3.5-5.0); SODIUM 135 mmol/L (135-145); TOTAL PROTEIN 7.1 g/dL (6.7-8.2); TRIGLYCERIDES 44 mg/dL; VLDL CHOLESTEROL 9 mg/dL
[2022-05-03 18:12] LABS: THYROID STIMULATING HORMONE 0.67 uIU/mL (0.34-5.60)
== END 2022-05-03 11:05 | disposition home or self-care (01) ==
LOC: LAB.N 11:04
PROVIDERS: ATTEND Nurse Practitioner
DX: Z00.00 Encounter for general adult medical examination without abnormal findings (principal); Z13.220 Encounter for screening for lipoid disorders; Z86.39 Personal history of other endocrine, nutritional and metabolic disease
CPT/HCPCS: 36415; 80053; 80061; 83721; 84443; 85025

== ENCOUNTER 2022-07-08 10:58 | Outpatient (CLI) | payer MEDICAID ==
--- NOTE | 2022-07-09 10:23 | Mammography Report ---
BILATERAL DIGITAL SCREENING MAMMOGRAM 3D/2D: 07/08/2022 CLINICAL: Family history of breast cancer. Routine screening. Comparison is made to exams dated: 01/17/2021 mammogram and 02/12/2018 mammogram - [facility]. There are scattered areas of fibroglandular density in both breasts (category b / 25%-50% glandular t issue). No significant masses, calcifications, or other findings are seen in either breast. There has been no significant interval change. IMPRESSION: NEGATIVE There is no mammographic evidence of malignancy. A 1 year screening mammogram is recommended. Based on the Tyrer Cuzick model (a risk assessment model) the patients lifetime risk is 12.5% and he r 10 year risk is 2.7%. According to the ACR, ACS, and NCCN guidelines, an annual breast MRI exam cabrera ng with mammogram is recommended if the patients lifetime risk is 20% or greater. This exam was interpreted at Station ID: [id number]. NOTE: For mammograms, a report in lay terms will be sent to the patient. Approximately 15% of breast malignancies will not be visualized mammographically. In the management of a palpable breast mass, a negative mammogram must not discourage biopsy of a clinically suspicious lesion. Electronically Signed By: Wilber massey/esme:07/08/2022 14:13:22 letter sent: No_Letter ACR BI-RADS Category 1: Negative 3341F PARENCHYMAL PATTERN: (A) - The breast(s) demonstrate(s) scattered fibroglandular densities. BI-RADS CATEGORY: (1) - 1 Mammogram 20230709 1 year screening LATERALITY: (B)
== END 2022-07-08 10:59 | disposition home or self-care (01) ==
LOC: DI.N 10:58
PROVIDERS: ATTEND Nurse Practitioner
DX: Z12.31 Encounter for screening mammogram for malignant neoplasm of breast (principal); Z80.3 Family history of malignant neoplasm of breast

== ENCOUNTER 2022-07-10 15:04 | Outpatient (CLI) | payer MEDICAID ==
--- NOTE | 2022-07-10 16:23 | Ultrasound Report ---
PROCEDURE: Pelvic w/Transvaginal INDICATIONS: ABNORMAL UTERINE BLEEDING TECHNIQUE: Real-time scanning was performed of the pelvic organs, with image documentation. Additional endovagi nal scanning was necessary due to incomplete visualization of the adnexal and endometrial structures by transabdominal scanning. COMPARISON: None. FINDINGS: Uterus: Uterus is anteverted and normal in size at 9.3 x 4.9 x 6.3 cm. The myometrium is homogeneou s. The endometrium measures 8 mm in combined thickness. Anechoic fluid within the endometrial cavit y. Ovaries: The right ovary measures 3.0 x 2.4 x 2.1 cm, with a calculated ovarian volume of 7.8 cc. T he left ovary measures 2.2 x 1.4 x 1.5 cm, with a calculated ovarian volume of 2.6 cc. The ovaries h ave a normal sonographic appearance. Less than 12 follicles can be seen in each ovary. No adnexal m asses are seen. No cystic lesions measuring greater than 3 cm. Other: No pathologic free abdominal or pelvic fluid. IMPRESSION: Endometrial complex measures 8 mm, and contains anechoic fluid. Reviewed by: Duane Adorno on 07/10/2022 4:22 PM PDT Approved by: Duane Adorno on 07/10/2022 4:22 PM PDT Station ID: [id number]
== END 2022-07-10 15:05 | disposition home or self-care (01) ==
LOC: DI 15:04
PROVIDERS: ATTEND Obstetrics & Gynecology
DX: N93.9 Abnormal uterine and vaginal bleeding, unspecified (principal)

== ENCOUNTER 2022-08-26 11:28 | Outpatient (CLI) | payer MEDICAID | END 2022-08-26 11:29 | disposition home or self-care (01) | LOC: LAB 11:28 | PROVIDERS: ATTEND Obstetrics & Gynecology | DX: Z01.812 Encounter for preprocedural laboratory examination (principal); N93.9 Abnormal uterine and vaginal bleeding, unspecified | CPT/HCPCS: 86850; 86900; 86901 ==

== ENCOUNTER 2022-08-27 09:14 | Day surgery (SDC) | payer MEDICAID ==
[~2022-08-27 09:14] MED LIST changes: -ACETAMINOPHEN 1,000 MG/100 ML 100 ML IV ONE; +ACETAMINOPHEN 500 MG TABLET PO ONE; +BUPIVACAINE 0.5%-EPI 1:200000 PF 30 ML VIAL ONE; +ESTROGENS, CONJUGATED CREAM 30 GM TUBE ONE; +METHYLENE BLUE 0.5% 50 MG/10 ML AMPULE ONE; +ceFAZolin 2 GM VIAL ONE
[2022-08-27] MEDS ORDERED: LACTATED RINGERS 1,000 ML IV ONE ×2 (09:58→12:26)
[2022-08-27] MEDS ORDERED: SCOPOLAMINE PATCH TOP ONE (10:07)
--- NOTE | 2022-08-27 10:11 | ANESTHESIA ---
Pre-Anesthesia VS, & Labs - Diagnosis abnormal uterine bleeding - Procedure hysterectomy Vital Signs: Temp Pulse Resp BP Pulse Ox O2 Flow Rate 36.5 C 68 13 121/60 100 08/27/22 09:51 08/27/22 09:51 08/27/22 09:51 08/27/22 09:51 08/27/22 09:51 Height: 5 ft 10 in Weight (kg): 72 kg Body Mass Index: 22.7 BMI Classification: Normal - NPO >8 hours - Is Patient ?: Waiver signed Comments:: HCG not ordered by MD due to prior BTL - Lab Results Current Lab Results: Laboratory Tests 08/27/22 09:45: POC Whole Bld Glucose 101 H Home Medications and Allergies Citalopram [CeleXA] 40 mg PO DAILY 10/19/15 Albuterol Sulfate [Proair Hfa Inhaler] 1 puffs INH PRN PRN 04/26/16 Allergies/Adverse Reactions: Allergies Allergy/AdvReac Type Severity Reaction Status Date / Time prochlorperazine AdvReac Unknown Verified 08/26/22 12:45 [From Compazine] prochlorperazine edisylate * AdvReac dystonic Verified 08/26/22 12:45 [From Compazine] reaction prochlorperazine maleate * AdvReac Unknown Verified 08/26/22 12:45 [From Compazine] Anes History & Medical History - Anesthetic History Anesthesia Complications: reports: Post-Operative Nausea/Vomiting Family history of Anesthesia Complications: Denies Family history of Malignant Hyperthermia: Denies - Medical History Cardiovascular: reports: None Pulmonary: reports: Asthma Gastrointestinal: reports: Other Urinary: reports: None Neuro: reports: None Musculoskeletal: reports: None Endocrine/Autoimmune: reports: None Blood Disorders: reports: None Skin: reports: None Smoking Status: Never smoker Psychosocial: reports: No issues indicated - Surgical History General: reports: Other Gynecologic: reports: Other Exam General: Alert, Oriented x3, Cooperative Dental: WNL, Other (prominent incisors) Mouth Openin Fingerbreadth Neck Mobility: Normal Mallampati classification: II Thyromental Distance: 4-6 cm Respiratory: Lungs clear Cardiovascular: Regular rate Plan Anesthesia Type: General Consent for Procedure(s) Verified and Reviewed: Yes Code Status: Attempt Resuscitation ASA classification: 2-Mild systemic disease Is this case an emergency?: No
[2022-08-27] MEDS ORDERED: ATROPINE ABBOJECT 1 MG/10 ML SYRINGE IVP PRN (10:12)
[2022-08-27] MEDS ORDERED: fentaNYL 100 MCG/2 ML VIAL IVP PRN ×2 (10:12→12:37)
[2022-08-27] MEDS ORDERED: MORPHINE 2 MG/ML CARPUJECT IVP PRN ×2 (10:12→12:37)
[2022-08-27] MEDS ORDERED: NALOXONE 0.4 MG/ML VIAL IVP PRN ×2 (10:12→12:37)
[2022-08-27] MEDS ORDERED: ePHEDrine 50 MG/ML VIAL IVP PRN ×2 (10:12→12:37)
[2022-08-27] MEDS ORDERED: ONDANSETRON 4 MG/2 ML VIAL IVP PRN ×2 (10:12→12:37)
[2022-08-27] MEDS ORDERED: fentaNYL 100 MCG/2 ML VIAL ONE (10:16)
[2022-08-27] MEDS ORDERED: MIDAZOLAM 2 MG/2 ML VIAL ONE (10:16)
[2022-08-27] MEDS ORDERED: KETAMINE 200 MG/20 ML VIAL ONE (10:17)
[2022-08-27] MEDS ORDERED: BUPIVACAINE 0.25%-EPI 1:200000 PF 30 ML VIAL SUBQ ONE (10:59)
[2022-08-27] MEDS ORDERED: LACTATED RINGERS 1,000 ML IV SCH ×2 (11:00→12:37)
[2022-08-27] MEDS ORDERED: SCOPOLAMINE PATCH TOP SCH ×2 (11:00→12:37)
[2022-08-27] MEDS ORDERED: VASOPRESSIN 20 UNIT/ML VIAL ONE (11:05)
[2022-08-27] MEDS ORDERED: ESTROGENS, CONJUGATED CREAM 30 GM TUBE VG ONE (11:22)
[2022-08-27] MEDS ORDERED: METHYLENE BLUE 0.5% 50 MG/10 ML AMPULE IR ONE (11:22)
[2022-08-27] MEDS ORDERED: VASOPRESSIN 20 UNIT/ML VIAL IVP ONE (11:23)
[2022-08-27] MEDS ORDERED: HYDROmorphone 1 MG/ML CARPUJECT ONE (11:28)
[2022-08-27] MEDS ORDERED: diphenhydrAMINE INJ 50 MG/ML VIAL ONE (11:30)
[2022-08-27] MEDS ORDERED: KETOROLAC 30 MG/ML VIAL ONE (11:30)
[2022-08-27] MEDS ORDERED: ROCURONIUM 50 MG/5 ML VIAL ONE (11:30)
[2022-08-27] MEDS ORDERED: ePHEDrine 50 MG/ML VIAL IVP ONE (11:30)
[2022-08-27] MEDS ORDERED: ONDANSETRON 4 MG/2 ML VIAL ONE (11:30)
[2022-08-27] MEDS ORDERED: DEXAMETHASONE 4 MG/ML VIAL ONE (11:30)
[2022-08-27] MEDS ORDERED: SUGAMMADEX 200 MG/2 ML VIAL IVP ONE (11:30)
[2022-08-27] MEDS ORDERED: PROPOFOL 200 MG/20 ML VIAL IVP ONE (11:56)
--- NOTE | 2022-08-27 12:30 | OPERATIVE REPORT ---
Operative Report - General Procedure Date: 08/27/22 Planned Procedure: Total vaginal hysterectomy, cystoscopy Pre-Op Diagnosis: Abnormal uterine bleeding Procedure Performed: Total vaginal hysterectomy Cystoscopy Post Op Diagnosis: Abnormal uterine bleeding - Procedure Note Primary Surgeon: Sandeep Collins MD Secondary Surgeon: Orly Ariza MD Anesthesia Provider: Bill Mack CRNA Anesthesia Technique: General ET tube Pathology: Uterus IV Fluids (mL): 1,000 Estimated Blood Loss (mL): 100 Urine Output (mL): 150 Findings: Normal appearing uterus and ovaries. Absent fallopian tubes. Complications: None - Other Other Information/Narrative: Prior to the procedure, patient was counseled the risk, benefits, alternatives of vaginal hysterectomy. She had attempted endometrial ablation and did not get adequate control, so she desired definitive management. Patient was taken to the operating room where endotracheal anesthesia was found to be adequate. She was prepped using chlorhexadine vaginally and draped in a dorsal lithotomy position using Stalin stirrups. A time out was performed and p rophylactic 2 g of cefazolin were given prior to incision. An exam under anesthesia was performed and was consistent with her preoperative evaluation. A weighted speculum was placed into the vagina and the cervix was grasped with a single-toothed tenaculum then straightened and both the anterior and posterior lips were grasped with a double-tooth tenaculum. Dilute vasopressin was injected in the cervix the cervix was circumferentially incised using a 10 blade scalpel. This allowed entry into the posterior cul-de-sac with careful dissection using Briggs scissors. The weighted speculum was traded for a long weighted speculum to better protect the rectum. The uterosacral ligaments were then identified, clamped and suture ligated using 0 vicryl using a Ger transfixion stitch. The cardinal ligaments were then identified, clamped, cut, and ligated using the LigaSure device. One additional ligation was needed. The anterior cul-de-sac was then entered sharply. A anders retractor was placed to protect the bladder. The uterine vessels were clamped, coagulated, and cut. The fundus was delivered through the vagina. The utero-ovarian vessels bilaterally were clamped coagulated and transected using the LigaSure device. The uterus was then removed and passed off. The left vascular pedicle was noted to be oozing, so a [id number] stitch was used to achieve hemostasis. The posterior peritoneum was closed with a running suture from the left uteralsacral ligament to the right with a 2-0 vicryl. The uterosacral vessels were incorporated into the vaginal cuff closure with a modified Barros's culdoplasty. The vaginal cuff was then closed in an anterior to posterior direction. The vaginal cuff was hemostatic. A rectal exam was performed to ensure no sutures penetrated the rectum. A cystoscopy was performed showing good ureteral jets from bilateral ureteral orifices and no sutures or defects present in the bladder. The patient was then cleaned and drained and legs brought down out of dorsal lithotomy position simultaneously. Sponge, lap, and needle counts were reported correct by the nursing staff following the procedure. I appreciate the assistance of Dr. Ariza during this procedure, and the assistance in retraction, visualization, dissection, and overall assistance during the case were instrumental to the patient's wellbeing.
[2022-08-27] MEDS ORDERED: HYDROmorphone 1 MG/ML CARPUJECT IVP PRN (12:33)
[2022-08-27] MEDS ORDERED: SIMETHICONE CHEW 80 MG TABLET PO PRN (12:33)
[2022-08-27] MEDS ORDERED: SCOPOLAMINE PATCH TOP PRN (12:33)
[2022-08-27] MEDS ORDERED: ONDANSETRON ODT 4 MG TABLET TL PRN (12:33)
[2022-08-27] MEDS ORDERED: HYDROmorphone 0.5 MG/0.5 ML SYRINGE IVP PRN (12:37)
[2022-08-27] MEDS: HYDROmorphone 0.5 MG/0.5 ML SYRINGE IVP PRN ×2 (13:25→13:31)
[2022-08-27] MEDS ORDERED: HYDROmorphone 0.5 MG/0.5 ML SYRINGE ONE (13:29)
[2022-08-27] MEDS: LACTATED RINGERS 1,000 ML IV SCH ×2 (14:13→16:48)
--- NOTE | 2022-08-27 14:45 | ANESTHESIA POST OP EVALUATION ---
Anesthesia Post Eval - Post Anesthesia Eval Vitals: Last Vital Signs Temp 36.8 C 08/27/22 13:42 Pulse 78 08/27/22 14:04 Resp 14 08/27/22 14:04 BP 111/59 L 08/27/22 14:04 Pulse Ox 94 08/27/22 14:04 O2 Flow Rate CV Function Including HR & BP: Stable Pain Control: Satisfactory Nausea & Vomiting: Negative Mental Status: Baseline Respiratory Status: Airway Patent Hydration Status: Satisfactory Anesthesia Complications: None
[2022-08-27] MEDS: HYDROcod/ACETAM 5/325 MG TABLET PO PRN ×2 (16:41→21:55)
[2022-08-27] MEDS: ACETAMINOPHEN 500 MG TABLET PO SCH (18:16)
[2022-08-27] MEDS: KETOROLAC 30 MG/ML VIAL IVP SCH ×2 (20:07→21:52)
[2022-08-27] MEDS: DOCUSATE SODIUM 100 MG CAPSULE PO SCH (20:09)
[2022-08-28] MEDS: KETOROLAC 30 MG/ML VIAL IVP SCH ×2 (01:10→07:03)
[2022-08-28] MEDS: ACETAMINOPHEN 500 MG TABLET PO SCH ×2 (01:35→09:59)
[2022-08-28] MEDS: HYDROcod/ACETAM 5/325 MG TABLET PO PRN (04:29)
[2022-08-28 05:02] LABS: BASOPHILS % (AUTO) 0.2 %; EOSINOPHILS % (AUTO) 0.1 %; HCT - HEMATOCRIT 31.5 % (37.0-47.0); HGB - HEMOGLOBIN 9.4 g/dL (12.0-16.0); LYMPHOCYTES # (AUTO) 1.6 10^3/uL (1.5-3.5); LYMPHOCYTES % (AUTO) 12.4 %; MEAN CORPUSCULAR HEMOGLOBIN 24.3 pg (27.0-31.0); MEAN CORPUSCULAR HGB CONC 29.8 g/dL (32.0-36.0); MEAN CORPUSCULAR VOLUME 81.4 fL (81.0-99.0); MEAN PLATELET VOLUME 11.1 fL (7.9-10.8); MONOCYTES # (AUTO) 0.9 10^3/uL (0.0-1.0); MONOCYTES % (AUTO) 6.8 %; NEUTROPHILS # (AUTO) 10.3 10^3/uL (1.5-6.6); NEUTROPHILS % (AUTO) 80.2 %; PLT - PLATELET COUNT 233 10^3/uL (130-450); RED BLOOD COUNT 3.87 10^6/uL (4.20-5.40); RED CELL DISTRIBUTION WIDTH 13.9 % (12.0-15.0); WHITE BLOOD COUNT 12.9 x10^3/uL (4.8-10.8)
[2022-08-28] MEDS: DOCUSATE SODIUM 100 MG CAPSULE PO SCH (08:59)
[2022-08-28] MEDS ORDERED: ENOXAPARIN 40 MG/0.4 ML SYRINGE SUBQ SCH (09:00)
[2022-08-28] MEDS: LACTATED RINGERS 1,000 ML IV SCH (10:28)
--- NOTE | 2022-08-28 10:46 | DISCHARGE SUMMARY ---
"Discharge Summary Admit Date: 08/27/22 Discharge Date: 08/28/22 Discharging Provider: Sandeep Collins MD Code Status: Attempt Resuscitation Discharge Disposition: 01 Home, Self Care - DIAGNOSES Admission Diagnoses: Abnormal uterine bleeding Discharge Diagnoses with Status of Each Condition: Abnormal uterine bleeding: Status post TVH - HPI History of Present Illness: No acute events overnight. Patient ambulating without problem. Some cramping in her belly, but no significant problems. Pain is well controlled. Voiding without difficulty. Tolerating p.o. Passing flatus, but no bowel movement. Denies fevers or chills. No significant bleeding. - CONSULTS | PROCEDURES Procedures: TVH Cystoscopy - HOSPITAL COURSE Hospital Course: Patient presented for planned TVH. Surgery was uncomplicated as well as postoperative course. She was discharged on postop day 1. - ALLERGIES Allergies/Adverse Reactions: Allergies Allergy/AdvReac Type Severity Reaction Status Date / Time prochlorperazine AdvReac Unknown Verified 08/26/22 12:45 [From Compazine] prochlorperazine edisylate * AdvReac dystonic Verified 08/26/22 12:45 [From Compazine] reaction prochlorperazine maleate * AdvReac Unknown Verified 08/26/22 12:45 [From Compazine] - MEDICATIONS Home Medications: Ambulatory Orders Medication Instructions Recorded Confirmed Citalopram [CeleXA] 40 mg PO DAILY 10/19/15 08/27/22 Albuterol Sulfate [Proair Hfa 1 puffs INH PRN PRN 04/26/16 08/27/22 Inhaler] HYDROcod/ACETAM 5/325 [[place] 5/325] 1 - 2 tablet PO Q6H PRN #15 tablet 08/27/22 Ibuprofen [Motrin] 600 mg PO Q6H PRN #30 tab 08/27/22 - LABS Result Diagrams: 08/28/22 04:48 - FOLLOW UP Follow Up: 1-2 weeks with Sandeep Collins MD at [facility] - TIME SPENT Time Spent in Discharge (Minutes): 20"
[2022-08-28 12:12] VITALS: BP 108/55
[2022-08-28] MEDS ORDERED: KETOROLAC 30 MG/ML VIAL IVP ONE (13:00)
== END 2022-08-28 13:00 | disposition home or self-care (01) ==
LOC: SDS 09:14 → MS2 13:54 → SDS 08-28 13:00
PROVIDERS: ATTEND Obstetrics & Gynecology
PROC: 0UT97ZZ Resection of Uterus, Via Natural or Artificial Opening (ICD-10-PCS; principal; 2022-08-27 10:30)
DX: N93.9 Abnormal uterine and vaginal bleeding, unspecified (principal); N80.9 Endometriosis, unspecified; N80.03 Adenomyosis of the uterus; N72 Inflammatory disease of cervix uteri; N88.8 Other specified noninflammatory disorders of cervix uteri; J45.909 Unspecified asthma, uncomplicated
CPT/HCPCS: 36415; 58260; 85025; A9270; J1170; J1200; J1650; J3490; J7120; Q0162

== ENCOUNTER 2022-09-03 12:44 | Outpatient (CLI) | payer MEDICAID ==
[2022-09-03 12:58] LABS: HCT - HEMATOCRIT 36.9 % (37.0-47.0); HGB - HEMOGLOBIN 11.1 g/dL (12.0-16.0); MEAN CORPUSCULAR HEMOGLOBIN 24.1 pg (27.0-31.0); MEAN CORPUSCULAR HGB CONC 30.1 g/dL (32.0-36.0); MEAN CORPUSCULAR VOLUME 80.2 fL (81.0-99.0); MEAN PLATELET VOLUME 11.3 fL (7.9-10.8); RED BLOOD COUNT 4.6 10^6/uL (4.20-5.40); WHITE BLOOD COUNT 7.5 x10^3/uL (4.8-10.8)
[2022-09-03 13:20] LABS: BILIRUBIN,URINE NEGATIVE (NEGATIVE); GLUCOSE, URINE (UA) NEGATIVE (NEGATIVE); KETONES,URINE (UA) NEGATIVE (NEGATIVE); LEUKOCYTE ESTERASE, URINE TRACE (NEGATIVE); NITRITE,URINE NEGATIVE (NEGATIVE); OCCULT BLOOD,URINE NEGATIVE (NEGATIVE); PH,URINE 7.5 PH (5.0-7.5); PROTEIN,URINE NEGATIVE (NEGATIVE); UROBILINOGEN,URINE 4 E.U./dL (NORMAL)
[2022-09-03 13:28] LABS: BACTERIA,URINE Few /HPF (None Seen); CLARITY,URINE CLEAR (CLEAR); RBC,URINE None Seen /HPF (0-5); SQUAMOUS EPITHELIAL CELL,UR MOD Squamous (<= Few)
[2022-09-03 13:32] LABS: ALBUMIN 3.9 g/dL (3.2-5.5); ALBUMIN/GLOBULIN RATIO 1.1 (1.0-2.2); BILIRUBIN,TOTAL 0.6 mg/dL (0.2-1.0); CALCIUM 8.9 mg/dL (8.5-10.3); CREATININE 0.8 mg/dL (0.4-1.0); POTASSIUM 4.3 mmol/L (3.5-5.0); TOTAL PROTEIN 7.5 g/dL (6.7-8.2)
== END 2022-09-03 12:45 | disposition home or self-care (01) ==
LOC: LAB 12:44
PROVIDERS: ATTEND Obstetrics & Gynecology
DX: Z48.816 Encounter for surgical aftercare following surgery on the genitourinary system (principal)
CPT/HCPCS: 36415; 80053; 81001; 85027; 87086

== ENCOUNTER 2022-09-03 15:02 | Outpatient (CLI) | payer MEDICAID ==
[2022-09-03] MEDS ORDERED: DIATRIZOATE MEGLU/DIATRIZO SOD 30 ML BOTTLE PO ONE (15:13)
[2022-09-03] MEDS ORDERED: iohexoL-300 100 ML VIAL ONE (15:13)
--- NOTE | 2022-09-03 16:44 | CT Report ---
PROCEDURE: ABDOMEN/PELVIS W INDICATIONS: AFTERCARE FOLLOWING SURGERY THE GENITOURINARY SYST Pain, recent hysterectomy CONTRAST: 100mL Omni 300 TECHNIQUE: After the administration of IV and oral contrast, 5 mm thick sections acquired from the diaphragms to the symphysis. 5 mm thick coronal and sagittal reformats were acquired. For radiation dose reducti on, the following was used: automated exposure control, adjustment of mA and/or kV according to maria fernanda ent size. COMPARISON: 07/19/2018 FINDINGS: Image quality: Good Lower chest: Mildly patulous distal esophagus. Lung bases are unremarkable. Solid organs: Liver is unremarkable. Gallbladder is unremarkable. CBD is borderline dilated at 6 mm, with tapering is seen distally. No pathologic dilation of the pancreatic duct. No splenomegaly. No ad renal nodules. No hydronephrosis. Vessels and lymph nodes: The main portal vein is patent. No abdominal aortic aneurysm. No pathologic lymph nodes by size criteria. Bowel and peritoneum: No evidence of acute bowel obstruction. Above average fecal loading. Appendix i s normal. No abscess or pathologic ascites identified. Body wall: Unremarkable Pelvis: Air in the bladder, possibly due to recent instrumentation. Fat stranding is seen around the pelvis and vaginal cuff. Status post hysterectomy. Bones: No acute or suspicious osseous finding. Pubic symphysis degenerative changes are present. Ther e is rightward spinal curvature. IMPRESSION: Fat stranding in the pelvis around the vaginal cuff, likely postoperative in etiology. There is no dr rosaline abscess. Air in the bladder may also be from recent instrumentation. Clinical followup is rec ommended. If there is new or worsening clinical concern, reimaging could be obtained. CBD is borderline dilated at 6 mm, with tapering distally. Correlate with LFTs. Above average fecal loading. Reviewed by: Michel Hercules MD on 09/03/2022 4:43 PM PDT Approved by: Michel Hercules MD on 09/03/2022 4:43 PM PDT Station ID: [id number]
[2022-09-03] MEDS ORDERED: iohexoL-300 100 ML VIAL IVP ONE (16:50)
== END 2022-09-03 15:03 | disposition home or self-care (01) ==
LOC: DI 15:02
PROVIDERS: ATTEND Obstetrics & Gynecology
DX: R10.2 Pelvic and perineal pain (principal); Z48.816 Encounter for surgical aftercare following surgery on the genitourinary system
CPT/HCPCS: 36415; 74177; 80053; 81001; 85027; Q9963; Q9967; 87086